=== PATIENT | male | born 1940 | race Caucasian/White ===

== ENCOUNTER → 2017-01-25 | Outpatient (CLI) | payer MEDICARE, OTHER ==
[~2017-01-25] MED LIST: /ESOM40CA; ASPI325T; AVAP75TA5; FISH OIL; HUMA75VL; LOPR50TA; PERICOLACE; PLAV75TA2; PRAV40TA; THERGRAN; XANA0.25; [UNRECOGNIZED DRUG - OTHER]
--- NOTE | 2017-01-25 15:47 | REP ---
CAROTID ULTRASOUND: Real-time ultrasound evaluation and duplex Doppler interrogation of the extracranial carotid vasculature is performed. Mild to moderate scattered plaquing and narrowing is seen in both common carotid arteries and carotid bulbs extending into the internal carotid arteries. There is mild elevation of the peak systolic velocity in both common carotid arteries as well as the internal carotid arteries with normal ICA/CCA ratios. The elevated velocities in the internal carotid arteries would suggest stenosis 60 to 79%, but the normal ICA/CCA ratio ratios suggest luminal narrowing is actually less than 50%. There is normal direction of flow in both vertebral arteries. Compared to the prior study of 01/04/2016, the peak systolic velocities in the internal carotid arteries have only mildly increased bilaterally. Right Left PSV ICA 156.4 cm/s 149.8 cm/s EDV ICA 20.5 cm/s 36.6 cm/s PSV CCA 131.9 cm/s 138.0 cm/s PSV ECA 243 cm/s 136.8 cm/s ICA/CCA ratio 1.19 1.08 IMPRESSION: Similar findings to prior examinations, the most recent of which is 01/04/2016. Mild elevation of peak systolic velocity in the common carotid arteries and internal carotid arteries again noted, with only mild increase in the peak systolic velocities in the bilateral internal carotid arteries compared to that prior exam. The elevated velocities in the internal carotid arteries would be suggestive of stenosis between 60 and 79%, but the normal ICA/CCA ratios favor luminal narrowing less than 50%. There does not appear to be significant change when compared to prior study in 2016. Further evaluation may be made with MRA if clinically indicated. Signed by Simba Muñoz MD 01/25/2017 04:22 P
== END ==
LOC: M RAD 14:34
PROVIDERS: ATTEND Surgery Vascular Surgery
DX: I65.23 Occlusion and stenosis of bilateral carotid arteries (principal)

== ENCOUNTER → 2017-12-05 | Outpatient (CLI) | payer MEDICARE, OTHER ==
[2017-12-05 14:14] LABS: ANION GAP 4 MEQ/L (8-16); BLOOD UREA NITROGEN 32 MG/DL (7-18); CALCIUM LEVEL 8.9 MG/DL (8.8-10.2); CARBON DIOXIDE LEVEL 29 MEQ/L (21-32); CHLORIDE LEVEL 107 MEQ/L (98-107); GLOMERULAR FILTRATION RATE > 60.0 (>42); GLUCOSE, FASTING 116 MG/DL (70-100); POTASSIUM SERUM 4.9 MEQ/L (3.5-5.1); SODIUM LEVEL 140 MEQ/L (136-145)
== END ==
LOC: M SMT 09:32
DX: I25.10 Atherosclerotic heart disease of native coronary artery without angina pectoris (principal); I10 Essential (primary) hypertension
CPT/HCPCS: 80048

== ENCOUNTER → 2018-08-28 | Outpatient (REF) | payer MEDICARE, OTHER | LOC: M LAB REF 17:25 | PROVIDERS: ATTEND Family Medicine | DX: D64.9 Anemia, unspecified (principal) ==

== ENCOUNTER → 2018-12-10 | Outpatient (REF) | payer MEDICARE, OTHER ==
[~2018-12-10] MED LIST changes: -/ESOM40CA; +NEXI1CAP3
== END ==
LOC: M LAB REF 12:18
PROVIDERS: ATTEND Family Medicine
DX: I25.10 Atherosclerotic heart disease of native coronary artery without angina pectoris (principal)

== ENCOUNTER → 2020-06-02 | Outpatient (CLI) | payer MEDICARE, OTHER ==
--- NOTE | 2020-06-07 10:57 | REP ---
CAROTID DOPPLER ULTRASOUND CLINICAL: History of carotid stenosis and bilateral endarterectomy. COMPARISON: 01/23/2018. TECHNIQUE: Real-time cline scale and color Doppler evaluation using linear high frequency transducer. FINDINGS: Mild mixed atheromatous plaquing noted throughout the bilateral common carotid arteries extending to the carotid bulbs and proximal internal carotid arteries. Color evaluation demonstrates normal laminar flow without turbulence or obvious stenosis/occlusion. Doppler interrogation demonstrates arterial wave patterns with mild spectral broadening. Normal flow direction noted in the bilateral vertebral arteries. PEAK FLOW VELOCITY ANALYSIS RIGHT LEFT ICA PSV 104.2 cm/s 100.7 cm/s ICA EDV 16.7 cm/s 13.8 cm/s ECA PSV 194.3 cm/s 154.1 cm/s CCA PSV 148.1 cm/s 150.1 cm/s ICA/CCA RATIO 0.70 0.67 IMPRESSION: Relatively mild atheromatous plaquing noted bilaterally. Based on set standards, narrowing is in the less than 50% range bilaterally. No evidence for significant stenosis or occlusion. MTDD
== END ==
LOC: M RAD 12:15
PROVIDERS: ATTEND Surgery Vascular Surgery
DX: I65.29 Occlusion and stenosis of unspecified carotid artery (principal)

== ENCOUNTER → 2021-05-18 | Outpatient (CLI) | payer MEDICARE, OTHER ==
--- NOTE | 2021-05-18 12:11 | REP ---
INDICATION: Assess stenosis COMPARISON: Multiple the latest 06/02/2020 TECHNIQUE: Carotid ultrasonography was performed bilaterally FINDINGS: Right: CCA systolic: 111.8 centimeters/second CCA diastolic: 11.3 centimeters/second ICA systolic: 94.1 centimeters/second ICA diastolic: 19.1 centimeters/second ICA CCA ratio: 0.84 Left: CCA systolic: 146.2 centimeters/second CCA diastolic: 13.9 centimeters/second ICA systolic: 116.0 centimeters/second ICA diastolic: 28.2 centimeters/second ICA CCA ratio: 0.79 Vertebral artery: Right: Antegrade flow left: Antegrade flow IMPRESSION: According to the SRU criteria there is less than 50% stenosis of the internal carotid artery bilaterally. This is secondary to both calcified and noncalcified atheromatous plaque formation. There has been no significant change compared to the prior exam. <Electronically signed by Randall Trinidad > 05/18/21 [id number]
== END ==
LOC: M RAD 11:22
PROVIDERS: ATTEND Surgery Vascular Surgery
DX: I65.23 Occlusion and stenosis of bilateral carotid arteries (principal)

== ENCOUNTER 2022-04-06 15:36 | Inpatient (IN) | payer MEDICARE, OTHER ==
[~2022-04-06] VITALS: Ht 167.6 cm; Wt 100.0 kg
[~2022-04-06 15:36] MED LIST changes: -ACETAMINOPHEN 1000MG 100ML IV BTL (OFIRMEV) (J0131 PER 10MG) As Ordered ONE; -ALPR0.25 PO; -AMLO1TAB24 PO; -ASPI-161 PO; -ATOR40TA75 PO; -FISH1000 PO; -GASTROGRAFIN SOLUTION 30ML (Q9963) As Ordered ONE; -INSUHUMDS SC; -INSULANT SC; -LIDOCAINE 2% 100MG/5ML SDV (FOR ANES.) As Ordered ONE; -LOSA100T8 PO; -METO25TA4 PO; -NEXI40CA PO; -ONDANSETRON 4MG 2ML VIAL As Ordered ONE; -PHENYLephrine 500MCG 5ML (100MCG/ML) SYRINGE As Ordered ONE; -PLAV1TAB2 PO; -ROCURONIUM BROMIDE 50 MG/5 ML VIAL As Ordered ONE; -SENN-23 PO; -SLOWTAB2 PO; -SPIR-10 PO; -SUGAMMADEX SODIUM 500 MG/5 ML VIAL (BRIDION) As Ordered ONE; -VASOPRESSIN INJ 20 UNITS/ML VIAL As Ordered ONE; -VITMTA PO; -ZETI10TA16 PO; -dexameTHASONE 4 MG/ML 1ML VIAL (J1100 PER 1MG) As Ordered ONE; -ePHEDrine SULFATE 25 MG/5 ML(5MG/ML) SYRINGE As Ordered ONE; -fentaNYL 100 MCG/2 ML INJECTION As Ordered ONE; -propofoL 200 MG/20 ML VIAL As Ordered ONE
[2022-04-06 16:39] LABS: BASO % 0.3 % (0.0-1.0); EOS # 0.1 10^3/uL (0.0-0.5); EOS % 0.8 % (0.0-3.0); HEMATOCRIT 40.3 % (42.0-52.0); HEMOGLOBIN 12.5 g/dl (13.5-17.5); LYMPH # 1.3 10^3/uL (1.5-5.0); LYMPH % 9.8 % (24.0-44.0); MEAN CORPUSCULAR HEMOGLOBIN 29.4 pg (27.0-33.0); MEAN CORPUSCULAR VOLUME 94.8 fl (80.0-96.0); MONO # 0.6 10^3/uL (0.0-0.8); MONO % 4.3 % (2.0-8.0); NEUTROPHILS # 11.5 10^3/uL (1.5-8.5); NEUTROPHILS % 84.4 % (36.0-66.0); PLATELET COUNT, AUTOMATED 151 10^3/uL (150-450); RED BLOOD COUNT 4.25 10^6/uL (4.30-6.10); WHITE BLOOD COUNT 13.6 10^3/uL (4.0-10.0)
[2022-04-06] MEDS ORDERED: ONDANSETRON 4MG 2ML VIAL IV ONE (16:50)
[2022-04-06] MEDS ORDERED: MORPHINE 2 MG/ML 1ML VIAL IV ONE (16:50)
[2022-04-06] MEDS ORDERED: NS 500 ML IV ONE (16:50)
[2022-04-06] MEDS ORDERED: PIPERACILLIN/TAZOBACTAM SOD 3.375 GM in D5W MINI-BAG PLUS 50 ML IV ONE (16:50)
[2022-04-06 17:21] LABS: INR 1.02; PROTHROMBIN TIME 13.8 SECONDS (12.7-14.5)
[2022-04-06 17:22] LABS: PARTIAL THROMBOPLASTIN TIME 33.5 SECONDS (25.9-37.0)
[2022-04-06 17:40] LABS: ALBUMIN 3.7 GM/DL (3.2-5.2); ALT/SGPT 22 U/L (12-78); BILIRUBIN,DIRECT 0.2 MG/DL (0.0-0.2); BILIRUBIN,TOTAL 0.6 MG/DL (0.2-1.0); BLOOD UREA NITROGEN 22 MG/DL (7-18); CALCIUM LEVEL 9.4 MG/DL (8.8-10.2); CARBON DIOXIDE LEVEL 27 MEQ/L (21-32); CHLORIDE LEVEL 108 MEQ/L (98-107); CREATININE FOR GFR 1.18 MG/DL (0.70-1.30); GLOMERULAR FILTRATION RATE > 60.0 (>35); GLUCOSE, FASTING 189 MG/DL (70-100); LIPASE 64 U/L (73-393); POTASSIUM SERUM 5.8 MEQ/L (3.5-5.1); SODIUM LEVEL 139 MEQ/L (136-145); TOTAL PROTEIN 7.5 GM/DL (6.4-8.2)
[2022-04-06] MEDS ORDERED: METOCLOPRAMIDE INJ 10MG/2ML VIAL (J2765 PER 1) IV ONE (18:00)
[2022-04-06] MEDS ORDERED: ALPRAZolam 0.25 MG TAB PO ONE (18:35)
[2022-04-06] MEDS ORDERED: ONDANSETRON 4MG 2ML VIAL IV PRN (20:40)
[2022-04-06] MEDS ORDERED: MORPHINE 2 MG/ML 1ML VIAL IV PRN (20:40)
[2022-04-06] MEDS ORDERED: KETOROLAC 30 MG/ML 1ML VIAL IV PRN (20:40)
[2022-04-06] MEDS: NS 1,000 ML IV SCH (21:00)
[2022-04-06] MEDS: INSULIN LISPRO (NovoLOG) PER UNIT SC SCH (21:00)
[2022-04-06] MEDS ORDERED: BUPIVACAINE HCL 0.25% 30ML VIAL As Ordered ONE (21:31)
[2022-04-06] MEDS ORDERED: ZOSYN 3.375GM VIAL As Ordered ONE (21:43)
[2022-04-06] MEDS ORDERED: NORCO, ANEXSIA 5/325MG TABLET (HYDROcodone/ACETAMINOPHEN) PO PRN (23:10)
[2022-04-06 23:45] VITALS: BP 103/41
[2022-04-07] VITALS (14 sets, daily range): BP systolic 76–106; BP diastolic 32–62
[2022-04-07] MEDS ORDERED: ATOR40TA75 PO (01:13)
[2022-04-07] MEDS ORDERED: ALPR0.25 PO (01:13)
[2022-04-07] MEDS ORDERED: FISH1000 PO (01:13)
[2022-04-07] MEDS ORDERED: ZETI10TA16 PO (01:13)
[2022-04-07] MEDS ORDERED: NEXI40CA PO (01:13)
[2022-04-07] MEDS ORDERED: ASPI-161 PO (01:13)
[2022-04-07] MEDS ORDERED: PLAV1TAB2 PO (01:13)
[2022-04-07] MEDS ORDERED: METO25TA4 PO (01:13)
[2022-04-07] MEDS ORDERED: INSUHUMDS SC (01:13)
[2022-04-07] MEDS ORDERED: SPIR-10 PO (01:13)
[2022-04-07] MEDS ORDERED: VITMTA PO (01:13)
[2022-04-07] MEDS ORDERED: SLOWTAB2 PO (01:13)
[2022-04-07] MEDS ORDERED: LOSA100T8 PO (01:13)
[2022-04-07] MEDS ORDERED: AMLO1TAB24 PO (01:13)
[2022-04-07] MEDS ORDERED: INSULANT SC (01:13)
[2022-04-07] MEDS ORDERED: SENN-23 PO (01:13)
[2022-04-07] MEDS ORDERED: HOME MED LIST COMPLETE! XX SCH (01:15)
[2022-04-07] MEDS: PIPERACILLIN/TAZOBACTAM SOD 3.375 GM in D5W MINI-BAG PLUS 50 ML IV SCH ×3 (01:30→10:10)
[2022-04-07] MEDS ORDERED: SPIRONOLACTONE 12.5MG PER 1/2 TABLET PO SCH (09:00)
[2022-04-07] MEDS ORDERED: LOSARTAN 50MG TABLET PO SCH (09:00)
[2022-04-07] MEDS ORDERED: hydroCHLOROthiazide 12.5 MG CAPSULE PO SCH (09:00)
[2022-04-07] MEDS: INSULIN LISPRO (NovoLOG) PER UNIT SC SCH ×4 (09:33→21:00)
[2022-04-07] MEDS: NS 1,000 ML IV SCH (09:34)
[2022-04-07] MEDS: PANTOPRAZOLE 40MG TAB (PROTONIX) PO SCH (10:09)
[2022-04-07] MEDS: CLOPIDOGREL 75 MG TAB PO SCH (10:09)
[2022-04-07] MEDS: ALPRAZolam 0.25 MG TAB PO SCH ×2 (10:16→20:38)
[2022-04-07] MEDS: METOPROLOL TART 12.5 MG PER 1/2 TAB PO SCH ×3 (10:59→20:39)
[2022-04-07] MEDS: amLODIPine 5 MG TAB PO SCH (10:59)
[2022-04-07] MEDS: ACETAMINOPHEN TAB 650MG DOSE (2X325MG) PO PRN ×3 (12:09→21:06)
[2022-04-07] MEDS: ATORVASTATIN 20 MG TAB PO SCH (20:38)
[2022-04-08 02:00] VITALS: BP_SYST 100; BP_SYST 80; BP_DIAS 44; BP_DIAS 52
[2022-04-08 06:00] VITALS: BP 114/60
[2022-04-08 07:48] LABS: HEMATOCRIT 34.7 % (42.0-52.0); HEMOGLOBIN 10.8 g/dl (13.5-17.5); MEAN CORPUSCULAR HEMOGLOBIN 30.4 pg (27.0-33.0); MEAN CORPUSCULAR HGB CONC 31.1 g/dl (32.0-36.5); MEAN CORPUSCULAR VOLUME 97.7 fl (80.0-96.0); RED BLOOD COUNT 3.55 10^6/uL (4.30-6.10); WHITE BLOOD COUNT 18.1 10^3/uL (4.0-10.0)
[2022-04-08 08:16] LABS: LYMPHOCYTES 7 % (16-44); MONOCYTES 1 % (0-5); NEUTROPHILS 80 % (28-66)
[2022-04-08 08:17] LABS: PLATELET CLUMPS SMALL AMT; PLATELET ESTIMATE INVALID (NORMAL)
[2022-04-08 08:18] LABS: CRENATED RBC 1+; OVALOCYTES 1+
[2022-04-08 08:19] LABS: POIKILOCYTOSIS 1+
[2022-04-08 08:20] LABS: POLYCHROMASIA 1+
[2022-04-08 08:29] LABS: CALCIUM LEVEL 7.8 MG/DL (8.8-10.2); CREATININE FOR GFR 2.82 MG/DL (0.70-1.30); GLOMERULAR FILTRATION RATE 23.1 (>35)
[2022-04-08 10:00] VITALS: BP 112/59
[2022-04-08] MEDS: CLOPIDOGREL 75 MG TAB PO SCH (10:12)
[2022-04-08] MEDS: INSULIN LISPRO (NovoLOG) PER UNIT SC SCH ×4 (10:12→21:00)
[2022-04-08] MEDS: PANTOPRAZOLE 40MG TAB (PROTONIX) PO SCH (10:12)
[2022-04-08] MEDS: METOPROLOL TART 12.5 MG PER 1/2 TAB PO SCH ×2 (10:14→19:42)
[2022-04-08] MEDS: ALPRAZolam 0.25 MG TAB PO SCH ×2 (10:15→20:31)
[2022-04-08] MEDS: PIPERACILLIN/TAZOBACTAM SOD 3.375 GM in D5W MINI-BAG PLUS 50 ML IV SCH ×2 (12:53→19:49)
[2022-04-08] MEDS: amLODIPine 5 MG TAB PO SCH (12:53)
[2022-04-08 12:58] LABS: CK-MB VALUE MASS 6.7 NG/ML (<3.6); MB/CK RELATIVE INDEX 7.79 (< OR =4)
[2022-04-08 14:00] VITALS: BP 142/70
[2022-04-08] MEDS: LR 1,000 ML IV SCH ×2 (14:31→22:09)
[2022-04-08] MEDS: ASPIRIN 81MG ENTERIC TABLET PO SCH (14:31)
[2022-04-08] MEDS: LEVEMIR (INSULIN DETEMIR) 1 UNITS/0.01ML SC SCH (14:31)
[2022-04-08 14:39] LABS: CK-MB VALUE MASS 6.1 NG/ML (<3.6); MB/CK RELATIVE INDEX 7.82 (< OR =4)
[2022-04-08] MEDS: ATORVASTATIN 20 MG TAB PO SCH (20:32)
[2022-04-08 22:00] VITALS: BP 141/72
[2022-04-09 02:00] VITALS: BP 140/74
[2022-04-09] MEDS: PIPERACILLIN/TAZOBACTAM SOD 3.375 GM in D5W MINI-BAG PLUS 50 ML IV SCH ×3 (03:14→18:15)
[2022-04-09] MEDS: ACETAMINOPHEN TAB 650MG DOSE (2X325MG) PO PRN ×2 (03:57→21:24)
[2022-04-09 06:00] VITALS: BP 142/73
[2022-04-09 07:14] LABS: BASO % 0.2 % (0.0-1.0); EOS # 0.3 10^3/uL (0.0-0.5); EOS % 2.5 % (0.0-3.0); HEMATOCRIT 32.6 % (42.0-52.0); HEMOGLOBIN 10.2 g/dl (13.5-17.5); LYMPH # 1.4 10^3/uL (1.5-5.0); LYMPH % 11.1 % (24.0-44.0); MEAN CORPUSCULAR HEMOGLOBIN 30.2 pg (27.0-33.0); MEAN CORPUSCULAR HGB CONC 31.3 g/dl (32.0-36.5); MEAN CORPUSCULAR VOLUME 96.4 fl (80.0-96.0); MONO # 0.5 10^3/uL (0.0-0.8); NEUTROPHILS # 10.2 10^3/uL (1.5-8.5); NEUTROPHILS % 80.9 % (36.0-66.0); PLATELET COUNT, AUTOMATED 102 10^3/uL (150-450); RED BLOOD COUNT 3.38 10^6/uL (4.30-6.10); WHITE BLOOD COUNT 12.7 10^3/uL (4.0-10.0)
[2022-04-09 07:44] LABS: C REACTIVE PROTEIN QUANTITATIV 11.7 MG/DL (0.00-0.30); CALCIUM LEVEL 8.6 MG/DL (8.8-10.2); CREATININE FOR GFR 1.63 MG/DL (0.70-1.30); GLOMERULAR FILTRATION RATE 43.4 (>35)
[2022-04-09] MEDS: LR 1,000 ML IV SCH ×3 (08:00→18:40)
[2022-04-09] MEDS: INSULIN LISPRO (NovoLOG) PER UNIT SC SCH ×4 (08:47→21:00)
[2022-04-09] MEDS: ASPIRIN 81MG ENTERIC TABLET PO SCH (08:48)
[2022-04-09] MEDS: ALPRAZolam 0.25 MG TAB PO SCH ×2 (08:48→21:25)
[2022-04-09] MEDS: PANTOPRAZOLE 40MG TAB (PROTONIX) PO SCH (08:48)
[2022-04-09] MEDS: CLOPIDOGREL 75 MG TAB PO SCH (08:48)
[2022-04-09] MEDS: amLODIPine 5 MG TAB PO SCH (08:48)
[2022-04-09] MEDS: LEVEMIR (INSULIN DETEMIR) 1 UNITS/0.01ML SC SCH (08:48)
[2022-04-09] MEDS: METOPROLOL TART 12.5 MG PER 1/2 TAB PO SCH (08:49)
[2022-04-09 11:30] VITALS: BP 150/80
[2022-04-09] MEDS: METOPROLOL TART 25 MG TABLET PO SCH ×3 (12:02→21:25)
[2022-04-09 12:03] VITALS: BP 152/78
[2022-04-09 14:00] VITALS: BP 154/79
[2022-04-09] MEDS: ATORVASTATIN 20 MG TAB PO SCH (21:25)
[2022-04-09 22:00] VITALS: BP 158/77
[2022-04-10] MEDS: LR 1,000 ML IV SCH ×2 (03:36→14:21)
[2022-04-10] MEDS: PIPERACILLIN/TAZOBACTAM SOD 3.375 GM in D5W MINI-BAG PLUS 50 ML IV SCH ×3 (03:36→18:18)
[2022-04-10 05:55] VITALS: BP 144/75
[2022-04-10 06:18] LABS: BASO % 0.3 % (0.0-1.0); EOS # 0.4 10^3/uL (0.0-0.5); EOS % 4.8 % (0.0-3.0); HEMOGLOBIN 10.2 g/dl (13.5-17.5); LYMPH # 1.6 10^3/uL (1.5-5.0); LYMPH % 21.7 % (24.0-44.0); MEAN CORPUSCULAR HEMOGLOBIN 28.8 pg (27.0-33.0); MONO # 0.4 10^3/uL (0.0-0.8); MONO % 5.5 % (2.0-8.0); NEUTROPHILS # 4.9 10^3/uL (1.5-8.5); NEUTROPHILS % 67.3 % (36.0-66.0); PLATELET COUNT, AUTOMATED 113 10^3/uL (150-450); RED BLOOD COUNT 3.54 10^6/uL (4.30-6.10); WHITE BLOOD COUNT 7.3 10^3/uL (4.0-10.0)
[2022-04-10 07:03] LABS: BLOOD UREA NITROGEN 23 MG/DL (7-18); C REACTIVE PROTEIN QUANTITATIV 5.44 MG/DL (0.00-0.30); CALCIUM LEVEL 8.9 MG/DL (8.8-10.2); CARBON DIOXIDE LEVEL 25 MEQ/L (21-32); CHLORIDE LEVEL 112 MEQ/L (98-107); CREATININE FOR GFR 1.16 MG/DL (0.70-1.30); GLOMERULAR FILTRATION RATE > 60.0 (>35); GLUCOSE, FASTING 103 MG/DL (70-100); POTASSIUM SERUM 4.5 MEQ/L (3.5-5.1); SODIUM LEVEL 142 MEQ/L (136-145)
[2022-04-10] MEDS: INSULIN LISPRO (NovoLOG) PER UNIT SC SCH ×4 (07:30→20:15)
[2022-04-10] MEDS: ASPIRIN 81MG ENTERIC TABLET PO SCH (08:10)
[2022-04-10] MEDS: ALPRAZolam 0.25 MG TAB PO SCH ×2 (08:10→20:15)
[2022-04-10] MEDS: CLOPIDOGREL 75 MG TAB PO SCH (08:11)
[2022-04-10] MEDS: PANTOPRAZOLE 40MG TAB (PROTONIX) PO SCH (08:11)
[2022-04-10] MEDS: METOPROLOL TART 25 MG TABLET PO SCH ×2 (08:11→12:18)
[2022-04-10] MEDS: LEVEMIR (INSULIN DETEMIR) 1 UNITS/0.01ML SC SCH (08:11)
[2022-04-10] MEDS ORDERED: LR 500 ML IV ONE (10:05)
[2022-04-10 11:33] VITALS: BP 175/83
[2022-04-10 15:12] VITALS: BP 149/73
[2022-04-10 17:16] VITALS: BP 172/60
[2022-04-10] MEDS ORDERED: METOPROLOL SUCC (TopROL XL) 50MG **XL** TAB PO ONE (18:00)
[2022-04-10] MEDS ORDERED: amLODIPine 5 MG TAB PO ONE (18:20)
[2022-04-10 20:11] VITALS: BP 148/78
[2022-04-10] MEDS: ATORVASTATIN 20 MG TAB PO SCH (20:14)
[2022-04-10] MEDS ORDERED: ENOXAPARIN 100MG/1ML SYRINGE (J1650 PER 10MG) SC ONE (21:00)
[2022-04-10] MEDS ORDERED: HEPARIN SOD (PORCINE) 5000UNITS/ML 1ML VIAL/SYRINGE SQ SCH (22:00)
[2022-04-11] VITALS: BP 162/68
[2022-04-11 03:25] VITALS: BP 164/78
[2022-04-11] MEDS: PIPERACILLIN/TAZOBACTAM SOD 3.375 GM in D5W MINI-BAG PLUS 50 ML IV SCH ×3 (03:30→18:19)
[2022-04-11 06:09] LABS: BASO % 0.5 % (0.0-1.0); EOS # 0.5 10^3/uL (0.0-0.5); EOS % 5.2 % (0.0-3.0); HEMATOCRIT 36.6 % (42.0-52.0); HEMOGLOBIN 11.7 g/dl (13.5-17.5); LYMPH # 2.6 10^3/uL (1.5-5.0); LYMPH % 29.3 % (24.0-44.0); MEAN CORPUSCULAR HEMOGLOBIN 29.8 pg (27.0-33.0); MEAN CORPUSCULAR VOLUME 93.4 fl (80.0-96.0); MONO # 0.5 10^3/uL (0.0-0.8); MONO % 5.8 % (2.0-8.0); NEUTROPHILS # 5.2 10^3/uL (1.5-8.5); NEUTROPHILS % 58.4 % (36.0-66.0); PLATELET COUNT, AUTOMATED 137 10^3/uL (150-450); RED BLOOD COUNT 3.92 10^6/uL (4.30-6.10); WHITE BLOOD COUNT 8.8 10^3/uL (4.0-10.0)
[2022-04-11 06:41] LABS: BLOOD UREA NITROGEN 18 MG/DL (7-18); CALCIUM LEVEL 9.4 MG/DL (8.8-10.2); CARBON DIOXIDE LEVEL 27 MEQ/L (21-32); CHLORIDE LEVEL 109 MEQ/L (98-107); CREATININE FOR GFR 1.18 MG/DL (0.70-1.30); GLOMERULAR FILTRATION RATE > 60.0 (>35); GLUCOSE, FASTING 158 MG/DL (70-100); PHOSPHORUS LEVEL 4.1 MG/DL (2.5-4.9); POTASSIUM SERUM 4.3 MEQ/L (3.5-5.1); SODIUM LEVEL 141 MEQ/L (136-145)
[2022-04-11 08:00] VITALS: BP 170/100
[2022-04-11] MEDS: MAG SULF 1GM/100ML (MAG RUN) 1 GM in IV 1 EA IV SCH ×2 (08:26→09:38)
[2022-04-11] MEDS: LEVEMIR (INSULIN DETEMIR) 1 UNITS/0.01ML SC SCH (08:26)
[2022-04-11] MEDS: INSULIN LISPRO (NovoLOG) PER UNIT SC SCH ×4 (08:26→20:28)
[2022-04-11] MEDS: PANTOPRAZOLE 40MG TAB (PROTONIX) PO SCH (08:27)
[2022-04-11] MEDS: CLOPIDOGREL 75 MG TAB PO SCH (08:27)
[2022-04-11] MEDS: METOPROLOL TART 25 MG TABLET PO SCH ×3 (08:27→18:21)
[2022-04-11] MEDS: ASPIRIN 81MG ENTERIC TABLET PO SCH (08:27)
[2022-04-11] MEDS: ALPRAZolam 0.25 MG TAB PO SCH ×2 (08:27→20:28)
[2022-04-11] MEDS: amLODIPine 5 MG TAB PO SCH (08:28)
[2022-04-11] MEDS ORDERED: METOPROLOL SUCC (TopROL XL) 50MG **XL** TAB PO SCH (09:00)
[2022-04-11] MEDS ORDERED: LOSARTAN 50MG TABLET PO SCH (09:00)
[2022-04-11] MEDS ORDERED: METOPROLOL SUCC *XL* 25MG TAB (TopROL *XL*) PO SCH (09:00)
[2022-04-11 11:34] VITALS: BP 160/72
[2022-04-11] MEDS: hydroCHLOROthiazide 12.5 MG CAPSULE PO SCH (14:21)
[2022-04-11 16:00] VITALS: BP 180/80
[2022-04-11 20:00] VITALS: BP 162/70
[2022-04-11] MEDS: APIXABAN 5 MG TAB (ELIQUIS) PO SCH (20:28)
[2022-04-11] MEDS: ATORVASTATIN 20 MG TAB PO SCH (20:28)
[2022-04-12] VITALS: BP 166/82
[2022-04-12] MEDS: METOPROLOL TART 25 MG TABLET PO SCH ×2 (00:48→05:06)
[2022-04-12] MEDS: PIPERACILLIN/TAZOBACTAM SOD 3.375 GM in D5W MINI-BAG PLUS 50 ML IV SCH ×2 (03:45→11:35)
[2022-04-12 04:00] VITALS: BP 162/80
[2022-04-12 05:09] LABS: HEMATOCRIT 33.8 % (42.0-52.0); HEMOGLOBIN 10.6 g/dl (13.5-17.5); MEAN CORPUSCULAR HEMOGLOBIN 29.8 pg (27.0-33.0); MEAN CORPUSCULAR HGB CONC 31.4 g/dl (32.0-36.5); MEAN CORPUSCULAR VOLUME 94.9 fl (80.0-96.0); PLATELET COUNT, AUTOMATED 150 10^3/uL (150-450); RED BLOOD COUNT 3.56 10^6/uL (4.30-6.10); WHITE BLOOD COUNT 9.6 10^3/uL (4.0-10.0)
[2022-04-12 05:51] LABS: BLOOD UREA NITROGEN 20 MG/DL (7-18); CARBON DIOXIDE LEVEL 31 MEQ/L (21-32); CHLORIDE LEVEL 107 MEQ/L (98-107); CREATININE FOR GFR 1.04 MG/DL (0.70-1.30); GLOMERULAR FILTRATION RATE > 60.0 (>35); GLUCOSE, FASTING 153 MG/DL (70-100); MAGNESIUM LEVEL 1.4 MG/DL (1.8-2.4); PHOSPHORUS LEVEL 4.2 MG/DL (2.5-4.9); POTASSIUM SERUM 4.2 MEQ/L (3.5-5.1); SODIUM LEVEL 143 MEQ/L (136-145)
[2022-04-12 08:00] VITALS: BP 160/72
[2022-04-12] MEDS ORDERED: ELIQ5TAB PO (08:23)
[2022-04-12] MEDS ORDERED: METO25TA4 PO (08:23)
[2022-04-12] MEDS ORDERED: LOSARTAN 50MG TABLET PO SCH (09:00)
[2022-04-12] MEDS: MAG SULF 1GM/100ML (MAG RUN) 1 GM in IV 1 EA IV SCH ×2 (09:02→10:18)
[2022-04-12] MEDS: PANTOPRAZOLE 40MG TAB (PROTONIX) PO SCH (09:03)
[2022-04-12] MEDS: INSULIN LISPRO (NovoLOG) PER UNIT SC SCH ×2 (09:03→12:26)
[2022-04-12] MEDS: ASPIRIN 81MG ENTERIC TABLET PO SCH (09:03)
[2022-04-12] MEDS: APIXABAN 5 MG TAB (ELIQUIS) PO SCH (09:03)
[2022-04-12] MEDS: LEVEMIR (INSULIN DETEMIR) 1 UNITS/0.01ML SC SCH (09:03)
[2022-04-12] MEDS: ALPRAZolam 0.25 MG TAB PO SCH (09:04)
[2022-04-12] MEDS: hydroCHLOROthiazide 12.5 MG CAPSULE PO SCH (09:04)
[2022-04-12 09:09] VITALS: BP 156/60
[2022-04-12] MEDS: amLODIPine 5 MG TAB PO SCH (09:09)
[2022-04-12 12:00] VITALS: BP 150/69
[2022-04-12] MEDS ORDERED: METOPROLOL TART 25 MG TABLET PO SCH (21:00)
== END 2022-04-12 15:21 | disposition home or self-care (01) | DRG 341 ==
LOC: M ED 15:36 → M SDC 20:59 → ENRESERV 22:58 → M MS5PR 23:45 → M SDC 04-09 11:42 → M MS5PR 04-09 11:43 → M PCU 04-10 17:05
PROVIDERS: ADMIT Surgery; ATTEND Surgery
PROC: 0DTJ4ZZ Resection of Appendix, Percutaneous Endoscopic Approach (ICD-10-PCS; principal; 2022-04-06 20:35)
PROC: B246ZZZ Ultrasonography of Right and Left Heart (ICD-10-PCS; 2022-04-08)
DX: K35.891 Other acute appendicitis without perforation, with gangrene (principal); U07.1 COVID-19; N17.9 Acute kidney failure, unspecified; T81.44XA Sepsis following a procedure, initial encounter; I96 Gangrene, not elsewhere classified; E11.9 Type 2 diabetes mellitus without complications; I25.10 Atherosclerotic heart disease of native coronary artery without angina pectoris; Z95.5 Presence of coronary angioplasty implant and graft; I50.9 Heart failure, unspecified; Z95.2 Presence of prosthetic heart valve; I11.0 Hypertensive heart disease with heart failure; R00.0 Tachycardia, unspecified; Z79.82 Long term (current) use of aspirin; Z79.4 Long term (current) use of insulin; Z79.899 Other long term (current) drug therapy; Z88.8 Allergy status to other drugs, medicaments and biological substances; I27.20 Pulmonary hypertension, unspecified; I48.91 Unspecified atrial fibrillation; D64.9 Anemia, unspecified

== ENCOUNTER → 2022-04-06 | Outpatient (CLI) | payer MEDICARE, OTHER ==
[~2022-04-06] MED LIST changes: +ACETAMINOPHEN 1000MG 100ML IV BTL (OFIRMEV) (J0131 PER 10MG) As Ordered ONE; +ALPR0.25 PO; +AMLO1TAB24 PO; +ASPI-161 PO; +ATOR40TA75 PO; +FISH1000 PO; +GASTROGRAFIN SOLUTION 30ML (Q9963) As Ordered ONE; +INSUHUMDS SC; +INSULANT SC; +LIDOCAINE 2% 100MG/5ML SDV (FOR ANES.) As Ordered ONE; +LOSA100T8 PO; +METO25TA4 PO; +NEXI40CA PO; +ONDANSETRON 4MG 2ML VIAL As Ordered ONE; +PHENYLephrine 500MCG 5ML (100MCG/ML) SYRINGE As Ordered ONE; +PLAV1TAB2 PO; +ROCURONIUM BROMIDE 50 MG/5 ML VIAL As Ordered ONE; +SENN-23 PO; +SLOWTAB2 PO; +SPIR-10 PO; +SUGAMMADEX SODIUM 500 MG/5 ML VIAL (BRIDION) As Ordered ONE; +VASOPRESSIN INJ 20 UNITS/ML VIAL As Ordered ONE; +VITMTA PO; +ZETI10TA16 PO; +dexameTHASONE 4 MG/ML 1ML VIAL (J1100 PER 1MG) As Ordered ONE; +ePHEDrine SULFATE 25 MG/5 ML(5MG/ML) SYRINGE As Ordered ONE; +fentaNYL 100 MCG/2 ML INJECTION As Ordered ONE; +propofoL 200 MG/20 ML VIAL As Ordered ONE
[2022-04-06 14:17] LABS: BLOOD UREA NITROGEN 23 MG/DL (7-18); CALCIUM LEVEL 9.3 MG/DL (8.8-10.2); CARBON DIOXIDE LEVEL 27 MEQ/L (21-32); CHLORIDE LEVEL 110 MEQ/L (98-107); CREATININE FOR GFR 1.16 MG/DL (0.70-1.30); GLOMERULAR FILTRATION RATE > 60.0 (>35); GLUCOSE, FASTING 101 MG/DL (70-100); POTASSIUM SERUM 5.6 MEQ/L (3.5-5.1); SODIUM LEVEL 140 MEQ/L (136-145)
== END ==
LOC: M RAD 12:29
PROVIDERS: ATTEND Physician Assistant Medical
DX: K35.80 Unspecified acute appendicitis (principal); R10.31 Right lower quadrant pain; M43.16 Spondylolisthesis, lumbar region; N28.1 Cyst of kidney, acquired
CPT/HCPCS: 36415; 74176; 80048; J0131; J2370; J2405; J3010; Q9963

== ENCOUNTER → 2022-04-25 | Outpatient (REF) | payer MEDICARE, OTHER ==
[~2022-04-25] MED LIST changes: +ALPR0.25 PO; +AMLO1TAB24 PO; +ASPI-161 PO; +ATOR40TA75 PO; +ELIQ5TAB PO; +FISH1000 PO; +INSUHUMDS SC; +INSULANT SC; +LOSA100T8 PO; +METO25TA4 PO; +NEXI40CA PO; +PLAV1TAB2 PO; +SENN-23 PO; +SLOWTAB2 PO; +SPIR-10 PO; +VITMTA PO; +ZETI10TA16 PO
== END ==
LOC: M LAB REF 16:18
PROVIDERS: ATTEND Family Medicine
DX: A41.89 Other specified sepsis (principal)

== ENCOUNTER → 2022-05-30 | Outpatient (CLI) | payer MEDICARE, OTHER | LOC: M RAD 12:45 | PROVIDERS: ATTEND Surgery Vascular Surgery | DX: I65.23 Occlusion and stenosis of bilateral carotid arteries (principal) ==

== ENCOUNTER → 2022-09-06 | Outpatient (CLI) | payer MEDICARE, OTHER ==
[~2022-09-06] MED LIST changes: +CLOP75TA99 PO; -PLAV1TAB2 PO
== END ==
LOC: M LABSMTC 10:28
PROVIDERS: ATTEND Anesthesiology
DX: Z01.812 Encounter for preprocedural laboratory examination (principal); Z20.822 Contact with and (suspected) exposure to COVID-19

== ENCOUNTER 2022-09-11 06:22 | Day surgery (SDC) | payer MEDICARE, OTHER ==
[~2022-09-11] VITALS: Ht 167.6 cm; Wt 102.1 kg
[~2022-09-11 06:22] MED LIST changes: +[UNRECOGNIZED DRUG - CODE] PO
[2022-09-11] MEDS ORDERED: LIDOCAINE 1% SDV 5ML VIAL As Ordered ONE (06:31)
[2022-09-11] MEDS ORDERED: TETRACAINE 0.5% OPHTH SOLN 4ML OD SCH (06:55)
[2022-09-11] MEDS ORDERED: PHENYLEPHRINE 2.5% OPHTH SOL 2ML OD SCH (06:55)
[2022-09-11] MEDS ORDERED: CYCLOPENTOLATE 1% OPHTH SOLN 2ML BTL OD SCH (06:55)
[2022-09-11] MEDS ORDERED: LR 1,000 ML IV SCH (07:00)
[2022-09-11] MEDS ORDERED: MIDAZOLAM INJ 2MG/2ML VIAL As Ordered ONE (07:52)
[2022-09-11] MEDS ORDERED: FLURBIPROFEN 0.03% OPHTH SOLN 2.5 ML OD SCH (08:00)
[2022-09-11] MEDS ORDERED: ESMOLOL INJ 100MG/10ML VIAL As Ordered ONE (08:08)
[2022-09-11 08:50] VITALS: BP 195/84
[2022-09-12] MEDS ORDERED: UNRESOLVED CLARIFICATION ENTRY XX SCH (00:01)
== END 2022-09-11 08:50 | disposition home or self-care (01) ==
LOC: M SDC 06:22
PROVIDERS: ATTEND Ophthalmology
DX: H25.811 Combined forms of age-related cataract, right eye (principal); I48.91 Unspecified atrial fibrillation; Z95.4 Presence of other heart-valve replacement; I10 Essential (primary) hypertension; Z95.5 Presence of coronary angioplasty implant and graft; E11.9 Type 2 diabetes mellitus without complications; Z87.891 Personal history of nicotine dependence; Z88.8 Allergy status to other drugs, medicaments and biological substances; Z79.4 Long term (current) use of insulin; Z79.01 Long term (current) use of anticoagulants; Z79.899 Other long term (current) drug therapy
CPT/HCPCS: 66984; J2250; V2632

== ENCOUNTER → 2023-02-13 | Outpatient (REF) | payer MEDICARE, OTHER ==
[2023-02-13 18:09] LABS: IRON (FE) 115 UG/DL (65-175); PERCENT SATURATION 30.4 % (19.7-50.0); TOTAL IRON BINDING CAPACITY 378 UG/DL (250-425)
[2023-02-13 18:11] LABS: VITAMIN B12 LEVEL 380 PG/ML (211-911)
[2023-02-13 18:12] LABS: FOLATE > 24.0 NG/ML (>5.4)
== END ==
LOC: M LAB REF 16:42
PROVIDERS: ATTEND Family Medicine
DX: D64.9 Anemia, unspecified (principal)

== ENCOUNTER 2023-05-05 17:59 | Inpatient (IN) | payer MEDICARE, OTHER ==
[~2023-05-05] VITALS: Ht 167.6 cm; Wt 100.4 kg
[~2023-05-05 17:59] MED LIST changes: +EZET10TA58 PO; -ZETI10TA16 PO
[2023-05-05 18:38] LABS: BASO % 0.3 % (0.0-1.0); EOS # 0.1 10^3/uL (0.0-0.5); EOS % 0.6 % (0.0-3.0); HEMATOCRIT 41.4 % (42.0-52.0); HEMOGLOBIN 13.2 g/dl (13.5-17.5); LYMPH # 1.5 10^3/uL (1.5-5.0); LYMPH % 9.6 % (24.0-44.0); MEAN CORPUSCULAR HEMOGLOBIN 29.2 pg (27.0-33.0); MEAN CORPUSCULAR HGB CONC 31.9 g/dl (32.0-36.5); MEAN CORPUSCULAR VOLUME 91.6 fl (80.0-96.0); MONO # 0.8 10^3/uL (0.0-0.8); MONO % 5.1 % (2.0-8.0); NEUTROPHILS # 12.7 10^3/uL (1.5-8.5); NEUTROPHILS % 83.9 % (36.0-66.0); PLATELET COUNT, AUTOMATED 148 10^3/uL (150-450); RED BLOOD COUNT 4.52 10^6/uL (4.30-6.10); WHITE BLOOD COUNT 15.1 10^3/uL (4.0-10.0)
[2023-05-05] MEDS ORDERED: ONDANSETRON 4MG 2ML VIAL IV ONE (18:50)
[2023-05-05] MEDS: MORPHINE 2 MG/ML 1ML VIAL IV PRN ×2 (19:13→21:43)
[2023-05-05 20:04] LABS: INR 1.3; PROTHROMBIN TIME 15.9 SECONDS (12.5-14.5)
[2023-05-05 20:05] LABS: PARTIAL THROMBOPLASTIN TIME 33.9 SECONDS (24.8-34.2)
[2023-05-05] MEDS ORDERED: ISOVUE-370 76% 100ML VIAL As Ordered ONE (20:29)
[2023-05-05] MEDS ORDERED: methylPREDNISolone 125MG 2ML VIAL IV ONE (20:35)
[2023-05-05] MEDS ORDERED: diphenhydrAMINE 50MG/ML VIAL IV ONE (20:35)
[2023-05-05 20:47] LABS: CK-MB VALUE MASS 1.1 NG/ML (<3.6)
[2023-05-05 20:50] LABS: THYROID STIMULATING HORMONE 2.577 uIU/ML (0.55-4.78)
[2023-05-05 20:52] LABS: FREE T4 1.12 NG/DL (0.89-1.76)
[2023-05-05 20:54] LABS: ALBUMIN 3.9 G/DL (3.2-5.2); BILIRUBIN,DIRECT 0.3 MG/DL (<0.4); BILIRUBIN,TOTAL 0.7 MG/DL (0.3-1.2); CALCIUM LEVEL 9.4 MG/DL (8.3-10.6); CREATININE FOR GFR 1.29 MG/DL (0.70-1.30); GLOMERULAR FILTRATION RATE 56.8 (>35); MB/CK RELATIVE INDEX 2.15 (< OR =4); POTASSIUM SERUM 4.7 MMOL/L (3.5-5.1); TOTAL PROTEIN 7.2 G/DL (5.7-8.2)
[2023-05-05 22:05] LABS: MB/CK RELATIVE INDEX 1.96 (< OR =4)
[2023-05-05] MEDS ORDERED: ACETAMINOPHEN TAB 650MG DOSE (2X325MG) PO ONE (22:35)
[2023-05-05] MEDS ORDERED: NS 1,000 ML IV ONE (22:35)
[2023-05-05] MEDS ORDERED: PIPERACILLIN/TAZOBACTAM SOD 3.375 GM in D5W MINI-BAG PLUS 50 ML IV ONE (23:25)
[2023-05-05] MEDS: METOPROLOL 5 MG/5 ML VIAL IV SCH ×2 (23:35→23:40)
[2023-05-06] MEDS ORDERED: METO25TA4 PO (00:50)
[2023-05-06] MEDS ORDERED: ELIQ5TAB PO (00:50)
[2023-05-06] MEDS ORDERED: HOME MED LIST COMPLETE! XX SCH (00:55)
[2023-05-06] MEDS: METOPROLOL 5 MG/5 ML VIAL IV SCH (01:06)
[2023-05-06] MEDS ORDERED: SENOKOT S TAB PO PRN (01:50)
[2023-05-06] MEDS ORDERED: MOM 30ML SUSPENSION UDC PO PRN (01:50)
[2023-05-06 03:37] VITALS: BP 116/54; TEMP 98.2; O2SAT 94
[2023-05-06] MEDS: ATORVASTATIN 20 MG TAB PO SCH ×2 (03:43→20:22)
[2023-05-06] MEDS ORDERED: NS 1,000 ML IV SCH (04:40)
[2023-05-06 05:13] LABS: HEMOGLOBIN 12.6 g/dl (13.5-17.5); MEAN CORPUSCULAR HGB CONC 31.5 g/dl (32.0-36.5); MEAN CORPUSCULAR VOLUME 92.2 fl (80.0-96.0); PLATELET COUNT, AUTOMATED 121 10^3/uL (150-450); RED BLOOD COUNT 4.34 10^6/uL (4.30-6.10); WHITE BLOOD COUNT 24.1 10^3/uL (4.0-10.0)
[2023-05-06 05:48] LABS: ALBUMIN 3.1 G/DL (3.2-5.2); BILIRUBIN,TOTAL 0.7 MG/DL (0.3-1.2); CALCIUM LEVEL 8.7 MG/DL (8.3-10.6); CREATININE FOR GFR 1.43 MG/DL (0.70-1.30); GLOMERULAR FILTRATION RATE 50.4 (>35); MAGNESIUM LEVEL 1.2 MG/DL (1.8-2.4); POTASSIUM SERUM 5.7 MMOL/L (3.5-5.1); TOTAL PROTEIN 6.2 G/DL (5.7-8.2)
[2023-05-06] MEDS: PIPERACILLIN/TAZOBACTAM SOD 3.375 GM in D5W MINI-BAG PLUS 50 ML IV SCH ×3 (05:49→18:31)
[2023-05-06] MEDS: MAG SULF 1GM/100ML (MAG RUN) 1 GM in IV 1 EA IV SCH ×2 (07:50→09:01)
[2023-05-06 08:00] VITALS: BP 134/61; TEMP 98.2; O2SAT 95
[2023-05-06] MEDS: LEVEMIR (INSULIN DETEMIR) 1 UNITS/0.01ML SC SCH (09:00)
[2023-05-06] MEDS ORDERED: amLODIPine 5 MG TAB PO SCH (09:00)
[2023-05-06] MEDS: PANTOPRAZOLE 40MG TAB (PROTONIX) PO SCH (09:01)
[2023-05-06] MEDS: MULTIVITAMINS/MINERALS THERAP 1 TAB PO SCH (09:01)
[2023-05-06] MEDS: ALPRAZolam 0.25 MG TAB PO SCH ×2 (09:01→20:22)
[2023-05-06] MEDS: ASPIRIN 81MG ENTERIC TABLET PO SCH (09:01)
[2023-05-06] MEDS: METOPROLOL TART 25 MG TABLET PO SCH ×2 (09:02→20:48)
[2023-05-06 11:00] LABS: CALCIUM LEVEL 8.5 MG/DL (8.3-10.6); CREATININE FOR GFR 1.48 MG/DL (0.70-1.30); GLOMERULAR FILTRATION RATE 48.4 (>35); POTASSIUM SERUM 5.6 MMOL/L (3.5-5.1)
[2023-05-06] MEDS ORDERED: GLUCOSE 4GM CHEW TABLET PO PRN (11:40)
[2023-05-06] MEDS ORDERED: GLUCAGON INJ 1MG VIAL SC PRN (11:40)
[2023-05-06] MEDS ORDERED: DEXTROSE 50% 50ML SYRINGE IV PRN (11:40)
[2023-05-06 12:00] VITALS: BP 133/60; TEMP 98; O2SAT 96
[2023-05-06] MEDS: INSULIN LISPRO (NovoLOG) PER UNIT SC SCH ×3 (12:00→23:40)
[2023-05-06] MEDS ORDERED: DEXTROSE 50% 50ML SYRINGE IV STA (12:11)
[2023-05-06] MEDS ORDERED: ALBUTEROL SULFATE 2.5MG/0.5ML INH NEB SOLN NEB STA (12:11)
[2023-05-06] MEDS ORDERED: HumuLIN R (REGULAR) INSULIN (NovoLIN R) **100U/ML** PER UNIT IV STA ×3 (12:11→16:21)
[2023-05-06] MEDS: NS 1,000 ML IV SCH ×2 (12:31→22:24)
[2023-05-06] MEDS ORDERED: INSULIN LISPRO (NovoLOG) PER UNIT SC ONE (14:05)
[2023-05-06] MEDS ORDERED: HEPARIN SOD (PORCINE) 5000UNITS/ML 1ML VIAL/SYRINGE IV PRN (15:00)
[2023-05-06 15:56] LABS: HEMATOCRIT 41.2 % (42.0-52.0); HEMOGLOBIN 12.4 g/dl (13.5-17.5); MEAN CORPUSCULAR HEMOGLOBIN 28.8 pg (27.0-33.0); MEAN CORPUSCULAR HGB CONC 30.1 g/dl (32.0-36.5); MEAN CORPUSCULAR VOLUME 95.6 fl (80.0-96.0); PLATELET COUNT, AUTOMATED 109 10^3/uL (150-450); RED BLOOD COUNT 4.31 10^6/uL (4.30-6.10); WHITE BLOOD COUNT 23.2 10^3/uL (4.0-10.0)
[2023-05-06 16:00] VITALS: BP 128/55; TEMP 97.9; O2SAT 93
[2023-05-06 16:08] LABS: ALBUMIN 2.8 G/DL (3.2-5.2); BILIRUBIN,TOTAL 0.7 MG/DL (0.3-1.2); CALCIUM LEVEL 8.6 MG/DL (8.3-10.6); CREATININE FOR GFR 1.51 MG/DL (0.70-1.30); GLOMERULAR FILTRATION RATE 47.3 (>35); POTASSIUM SERUM 4.9 MMOL/L (3.5-5.1)
[2023-05-06] MEDS ORDERED: LR 1,000 ML IV ONE (16:25)
[2023-05-06 16:57] LABS: LYMPHOCYTES 2 % (16-44); MONOCYTES 2 % (0-5); MYELOCYTES 2 % (0-0); NEUTROPHILS 87 % (28-66)
[2023-05-06 16:58] LABS: PLATELET ESTIMATE DECREASED (NORMAL)
[2023-05-06] MEDS ORDERED: NS 1,000 ML IV ONE (17:00)
[2023-05-06] MEDS: HEPARIN DRIP 25,000 UNITS in IV 1 EA IV SCH (17:24)
[2023-05-06 20:00] VITALS: BP 105/56; TEMP 98.4; O2SAT 93
[2023-05-06] MEDS: EZETIMIBE 10MG TABLET (ZETIA) PO SCH (20:22)
[2023-05-06] MEDS: ACETAMINOPHEN TAB 650MG DOSE (2X325MG) PO PRN (20:31)
[2023-05-06 23:00] VITALS: BP 98/49
[2023-05-06 23:49] LABS: INR 1.63; PROTHROMBIN TIME 18.9 SECONDS (12.5-14.5)
[2023-05-07] VITALS: BP 121/54; TEMP 97.9; O2SAT 94
[2023-05-07] MEDS: PIPERACILLIN/TAZOBACTAM SOD 3.375 GM in D5W MINI-BAG PLUS 50 ML IV SCH ×4 (00:05→17:10)
[2023-05-07 00:11] LABS: PARTIAL THROMBOPLASTIN TIME 207.2 SECONDS (24.8-34.2)
[2023-05-07] MEDS: ACETAMINOPHEN TAB 650MG DOSE (2X325MG) PO PRN ×2 (03:04→12:51)
[2023-05-07 04:00] VITALS: BP 154/55; TEMP 98; O2SAT 93
[2023-05-07 04:33] LABS: BASO % 0.1 % (0.0-1.0); HEMATOCRIT 36.3 % (42.0-52.0); HEMOGLOBIN 11.3 g/dl (13.5-17.5); LYMPH # 0.7 10^3/uL (1.5-5.0); LYMPH % 4.2 % (24.0-44.0); MEAN CORPUSCULAR HEMOGLOBIN 29.2 pg (27.0-33.0); MEAN CORPUSCULAR HGB CONC 31.1 g/dl (32.0-36.5); MEAN CORPUSCULAR VOLUME 93.8 fl (80.0-96.0); MONO # 0.6 10^3/uL (0.0-0.8); MONO % 3.1 % (2.0-8.0); NEUTROPHILS # 16.3 10^3/uL (1.5-8.5); NEUTROPHILS % 91.6 % (36.0-66.0); PLATELET COUNT, AUTOMATED 105 10^3/uL (150-450); RED BLOOD COUNT 3.87 10^6/uL (4.30-6.10); WHITE BLOOD COUNT 17.8 10^3/uL (4.0-10.0)
[2023-05-07 05:21] LABS: ALBUMIN 2.6 G/DL (3.2-5.2); BILIRUBIN,TOTAL 0.7 MG/DL (0.3-1.2); CALCIUM LEVEL 8.3 MG/DL (8.3-10.6); CREATININE FOR GFR 1.5 MG/DL (0.70-1.30); GLOMERULAR FILTRATION RATE 47.7 (>35); MAGNESIUM LEVEL 1.9 MG/DL (1.8-2.4); TOTAL PROTEIN 5.6 G/DL (5.7-8.2)
[2023-05-07] MEDS: INSULIN LISPRO (NovoLOG) PER UNIT SC SCH ×3 (06:00→18:00)
[2023-05-07 08:00] VITALS: BP 124/71; TEMP 98.2; O2SAT 98
[2023-05-07] MEDS: PANTOPRAZOLE 40MG TAB (PROTONIX) PO SCH (08:10)
[2023-05-07] MEDS: METOPROLOL TART 25 MG TABLET PO SCH ×2 (08:10→20:06)
[2023-05-07] MEDS: ASPIRIN 81MG ENTERIC TABLET PO SCH (08:10)
[2023-05-07] MEDS: ALPRAZolam 0.25 MG TAB PO SCH ×2 (08:10→20:06)
[2023-05-07] MEDS: MULTIVITAMINS/MINERALS THERAP 1 TAB PO SCH (09:00)
[2023-05-07] MEDS: CIPRODEX OTIC SUSP 7.5ML AS SCH ×2 (09:00→20:06)
[2023-05-07] MEDS ORDERED: LIDOCAINE 1% MDV 20ML VIAL As Ordered ONE (10:46)
[2023-05-07 12:26] VITALS: BP 125/58; TEMP 98.1; O2SAT 93
[2023-05-07 16:00] VITALS: BP 127/58; TEMP 97.8; O2SAT 94
[2023-05-07] MEDS: NS 1,000 ML IV SCH (17:10)
[2023-05-07 20:00] VITALS: BP 125/59; TEMP 98.9; O2SAT 93
[2023-05-07] MEDS: EZETIMIBE 10MG TABLET (ZETIA) PO SCH (20:05)
[2023-05-07] MEDS: ATORVASTATIN 20 MG TAB PO SCH (20:05)
[2023-05-07] MEDS: HEPARIN DRIP 25,000 UNITS in IV 1 EA IV SCH (21:56)
[2023-05-08] VITALS (8 sets, daily range): BP systolic 119–151; BP diastolic 56–64; TEMP 97–99.1; O2SAT 92–100
[2023-05-08] MEDS: INSULIN LISPRO (NovoLOG) PER UNIT SC SCH ×5 (00:26→21:00)
[2023-05-08] MEDS: PIPERACILLIN/TAZOBACTAM SOD 3.375 GM in D5W MINI-BAG PLUS 50 ML IV SCH ×4 (00:26→17:35)
[2023-05-08] MEDS: ACETAMINOPHEN TAB 650MG DOSE (2X325MG) PO PRN ×2 (04:06→14:36)
[2023-05-08 04:37] LABS: BASO % 0.1 % (0.0-1.0); EOS % 0.1 % (0.0-3.0); HEMATOCRIT 38.6 % (42.0-52.0); HEMOGLOBIN 11.9 g/dl (13.5-17.5); LYMPH # 0.9 10^3/uL (1.5-5.0); LYMPH % 6.7 % (24.0-44.0); MEAN CORPUSCULAR HGB CONC 30.8 g/dl (32.0-36.5); MEAN CORPUSCULAR VOLUME 94.1 fl (80.0-96.0); MONO # 0.3 10^3/uL (0.0-0.8); MONO % 2.3 % (2.0-8.0); NEUTROPHILS # 12.5 10^3/uL (1.5-8.5); NEUTROPHILS % 90.2 % (36.0-66.0); PLATELET COUNT, AUTOMATED 116 10^3/uL (150-450); WHITE BLOOD COUNT 13.9 10^3/uL (4.0-10.0)
[2023-05-08 05:44] LABS: ALBUMIN 2.5 G/DL (3.2-5.2); BILIRUBIN,TOTAL 0.9 MG/DL (0.3-1.2); CALCIUM LEVEL 8.5 MG/DL (8.3-10.6); CREATININE FOR GFR 1.26 MG/DL (0.70-1.30); GLOMERULAR FILTRATION RATE 58.3 (>35); MAGNESIUM LEVEL 1.9 MG/DL (1.8-2.4); POTASSIUM SERUM 4.7 MMOL/L (3.5-5.1); TOTAL PROTEIN 5.7 G/DL (5.7-8.2)
[2023-05-08] MEDS: ENOXAPARIN 100MG/1ML SYRINGE (J1650 PER 10MG) SC SCH ×2 (09:00→21:30)
[2023-05-08] MEDS ORDERED: LEVEMIR (INSULIN DETEMIR) 1 UNITS/0.01ML SC SCH (09:00)
[2023-05-08] MEDS: ASPIRIN 81MG ENTERIC TABLET PO SCH (09:26)
[2023-05-08] MEDS: ALPRAZolam 0.25 MG TAB PO SCH ×2 (09:26→21:29)
[2023-05-08] MEDS: MULTIVITAMINS/MINERALS THERAP 1 TAB PO SCH (09:26)
[2023-05-08] MEDS: PANTOPRAZOLE 40MG TAB (PROTONIX) PO SCH (09:26)
[2023-05-08] MEDS: CIPRODEX OTIC SUSP 7.5ML AS SCH ×2 (09:27→21:00)
[2023-05-08] MEDS: METOPROLOL TART 25 MG TABLET PO SCH ×3 (09:32→17:35)
[2023-05-08] MEDS: EZETIMIBE 10MG TABLET (ZETIA) PO SCH (21:29)
[2023-05-08] MEDS: ATORVASTATIN 20 MG TAB PO SCH (21:29)
[2023-05-09] VITALS (8 sets, daily range): BP systolic 125–167; BP diastolic 56–75; TEMP 96.6–98.1; O2SAT 89–97
[2023-05-09] MEDS: METOPROLOL TART 25 MG TABLET PO SCH ×2 (00:26→05:53)
[2023-05-09] MEDS: PIPERACILLIN/TAZOBACTAM SOD 3.375 GM in D5W MINI-BAG PLUS 50 ML IV SCH ×4 (00:27→18:28)
[2023-05-09] MEDS: ACETAMINOPHEN TAB 650MG DOSE (2X325MG) PO PRN ×2 (00:33→11:12)
[2023-05-09 05:07] LABS: BASO % 0.1 % (0.0-1.0); EOS # 0.1 10^3/uL (0.0-0.5); EOS % 0.8 % (0.0-3.0); HEMATOCRIT 35.8 % (42.0-52.0); HEMOGLOBIN 10.9 g/dl (13.5-17.5); LYMPH % 9.3 % (24.0-44.0); MEAN CORPUSCULAR HEMOGLOBIN 28.5 pg (27.0-33.0); MEAN CORPUSCULAR HGB CONC 30.4 g/dl (32.0-36.5); MEAN CORPUSCULAR VOLUME 93.7 fl (80.0-96.0); MONO # 0.5 10^3/uL (0.0-0.8); MONO % 4.3 % (2.0-8.0); NEUTROPHILS # 9.6 10^3/uL (1.5-8.5); PLATELET COUNT, AUTOMATED 118 10^3/uL (150-450); RED BLOOD COUNT 3.82 10^6/uL (4.30-6.10); WHITE BLOOD COUNT 11.2 10^3/uL (4.0-10.0)
[2023-05-09 05:33] LABS: ALBUMIN 2.2 G/DL (3.2-5.2); ALKALINE PHOSPHATASE 62 U/L (46-116); ALT/SGPT 39 U/L (7.0-40); AST/SGOT 30 U/L (<34); BILIRUBIN,TOTAL 0.6 MG/DL (0.3-1.2); BLOOD UREA NITROGEN 25 MG/DL (9-23); CALCIUM LEVEL 8.6 MG/DL (8.3-10.6); CARBON DIOXIDE LEVEL 29 MMOL/L (20-31); CHLORIDE LEVEL 105 MMOL/L (98-107); CREATININE FOR GFR 1.13 MG/DL (0.70-1.30); GLOMERULAR FILTRATION RATE > 60.0 (>35); GLUCOSE, FASTING 180 MG/DL (74-106); MAGNESIUM LEVEL 1.4 MG/DL (1.8-2.4); POTASSIUM SERUM 4.4 MMOL/L (3.5-5.1); SODIUM LEVEL 140 MMOL/L (136-145); TOTAL PROTEIN 5.4 G/DL (5.7-8.2)
[2023-05-09] MEDS ORDERED: MAG SULF 1GM/100ML (MAG RUN) 1 GM in IV 1 EA IV ONE (08:00)
[2023-05-09] MEDS: INSULIN LISPRO (NovoLOG) PER UNIT SC SCH ×4 (08:23→20:28)
[2023-05-09] MEDS: ASPIRIN 81MG ENTERIC TABLET PO SCH (08:24)
[2023-05-09] MEDS: PANTOPRAZOLE 40MG TAB (PROTONIX) PO SCH (08:24)
[2023-05-09] MEDS: ALPRAZolam 0.25 MG TAB PO SCH ×2 (08:24→20:50)
[2023-05-09] MEDS: ENOXAPARIN 100MG/1ML SYRINGE (J1650 PER 10MG) SC SCH (08:24)
[2023-05-09] MEDS: MULTIVITAMINS/MINERALS THERAP 1 TAB PO SCH (08:25)
[2023-05-09] MEDS: MAGNESIUM OXIDE 400MG TAB (MAG-OX) PO SCH ×2 (08:25→20:50)
[2023-05-09] MEDS ORDERED: LEVEMIR (INSULIN DETEMIR) 1 UNITS/0.01ML SC SCH (09:00)
[2023-05-09] MEDS ORDERED: FUROSEMIDE 20MG/2ML VIAL IV ONE (12:30)
[2023-05-09] MEDS: hydroCHLOROthiazide 12.5 MG CAPSULE PO SCH (13:05)
[2023-05-09] MEDS: CIPRODEX OTIC SUSP 7.5ML AS SCH ×2 (13:06→20:50)
[2023-05-09] MEDS ORDERED: ACET1TAB55 PO (16:36)
[2023-05-09] MEDS ORDERED: LOPR1TAB6 PO (16:36)
[2023-05-09] MEDS ORDERED: MAGN400T2 PO (16:36)
[2023-05-09] MEDS ORDERED: LEVO1TAB39 PO (16:37)
[2023-05-09] MEDS: EZETIMIBE 10MG TABLET (ZETIA) PO SCH (20:50)
[2023-05-09] MEDS: ATORVASTATIN 20 MG TAB PO SCH (20:50)
[2023-05-09] MEDS: APIXABAN 5 MG TAB (ELIQUIS) PO SCH (20:50)
[2023-05-09] MEDS: METOPROLOL TART 50 MG TAB PO SCH (20:51)
[2023-05-10] MEDS: PIPERACILLIN/TAZOBACTAM SOD 3.375 GM in D5W MINI-BAG PLUS 50 ML IV SCH ×2 (00:39→06:06)
[2023-05-10 03:53] VITALS: BP 168/70; TEMP 97.4; O2SAT 88; O2SAT 92
[2023-05-10 06:52] LABS: BASO % 0.2 % (0.0-1.0); EOS # 0.1 10^3/uL (0.0-0.5); HEMATOCRIT 38.1 % (42.0-52.0); HEMOGLOBIN 12.2 g/dl (13.5-17.5); LYMPH # 1.2 10^3/uL (1.5-5.0); LYMPH % 11.6 % (24.0-44.0); MEAN CORPUSCULAR HEMOGLOBIN 29.3 pg (27.0-33.0); MEAN CORPUSCULAR VOLUME 91.6 fl (80.0-96.0); MONO # 0.6 10^3/uL (0.0-0.8); MONO % 5.7 % (2.0-8.0); NEUTROPHILS # 8.1 10^3/uL (1.5-8.5); PLATELET COUNT, AUTOMATED 159 10^3/uL (150-450); RED BLOOD COUNT 4.16 10^6/uL (4.30-6.10)
[2023-05-10 07:22] LABS: ALBUMIN 2.5 G/DL (3.2-5.2); ALKALINE PHOSPHATASE 88 U/L (46-116); ALT/SGPT 63 U/L (7.0-40); AST/SGOT 38 U/L (<34); BILIRUBIN,TOTAL 0.7 MG/DL (0.3-1.2); BLOOD UREA NITROGEN 21 MG/DL (9-23); CALCIUM LEVEL 9.3 MG/DL (8.3-10.6); CARBON DIOXIDE LEVEL 32 MMOL/L (20-31); CHLORIDE LEVEL 100 MMOL/L (98-107); CREATININE FOR GFR 1.06 MG/DL (0.70-1.30); GLOMERULAR FILTRATION RATE > 60.0 (>35); GLUCOSE, FASTING 223 MG/DL (74-106); MAGNESIUM LEVEL 1.4 MG/DL (1.8-2.4); POTASSIUM SERUM 4.1 MMOL/L (3.5-5.1); SODIUM LEVEL 140 MMOL/L (136-145); TOTAL PROTEIN 6.2 G/DL (5.7-8.2)
[2023-05-10 07:49] VITALS: BP 125/69; TEMP 97.2; O2SAT 93
[2023-05-10] MEDS ORDERED: LEVEMIR (INSULIN DETEMIR) 1 UNITS/0.01ML SC SCH (09:00)
[2023-05-10] MEDS: ALPRAZolam 0.25 MG TAB PO SCH (10:07)
[2023-05-10] MEDS: ASPIRIN 81MG ENTERIC TABLET PO SCH (10:07)
[2023-05-10] MEDS: INSULIN LISPRO (NovoLOG) PER UNIT SC SCH ×2 (10:07→12:39)
[2023-05-10] MEDS: hydroCHLOROthiazide 12.5 MG CAPSULE PO SCH (10:07)
[2023-05-10 10:08] VITALS: BP 125/69
[2023-05-10] MEDS: APIXABAN 5 MG TAB (ELIQUIS) PO SCH (10:08)
[2023-05-10] MEDS: MULTIVITAMINS/MINERALS THERAP 1 TAB PO SCH (10:08)
[2023-05-10] MEDS: MAGNESIUM OXIDE 400MG TAB (MAG-OX) PO SCH (10:08)
[2023-05-10] MEDS: PANTOPRAZOLE 40MG TAB (PROTONIX) PO SCH (10:08)
[2023-05-10] MEDS: METOPROLOL TART 50 MG TAB PO SCH (10:08)
[2023-05-10] MEDS: CIPRODEX OTIC SUSP 7.5ML AS SCH (10:09)
[2023-05-10 11:30] VITALS: BP 132/65; TEMP 98; O2SAT 95
== END 2023-05-10 14:13 | disposition home health service (06) | DRG 872 ==
LOC: EDSEX 17:59 → EDBD 17:59 → M ED 17:59 → M ED INP 05-06 01:48 → M ICU 05-06 03:30 → M PCU 05-08 18:15
PROVIDERS: ADMIT Internal Medicine; ATTEND Internal Medicine
PROC: 0F9430Z Drainage of Gallbladder with Drainage Device, Percutaneous Approach (ICD-10-PCS; principal; 2023-05-07 16:00)
DX: A41.9 Sepsis, unspecified organism (principal); I50.32 Chronic diastolic (congestive) heart failure; K80.00 Calculus of gallbladder with acute cholecystitis without obstruction; N17.9 Acute kidney failure, unspecified; J98.11 Atelectasis; E11.9 Type 2 diabetes mellitus without complications; E83.42 Hypomagnesemia; B96.20 Unspecified Escherichia coli [E. coli] as the cause of diseases classified elsewhere; B96.4 Proteus (mirabilis) (morganii) as the cause of diseases classified elsewhere; I25.10 Atherosclerotic heart disease of native coronary artery without angina pectoris; I11.0 Hypertensive heart disease with heart failure; E78.5 Hyperlipidemia, unspecified; I48.0 Paroxysmal atrial fibrillation; Z79.01 Long term (current) use of anticoagulants; Z90.49 Acquired absence of other specified parts of digestive tract; Z79.4 Long term (current) use of insulin; Z79.82 Long term (current) use of aspirin; Z79.899 Other long term (current) drug therapy; Z88.8 Allergy status to other drugs, medicaments and biological substances; Z88.3 Allergy status to other anti-infective agents; Z95.5 Presence of coronary angioplasty implant and graft; Z95.2 Presence of prosthetic heart valve

== ENCOUNTER → 2023-05-24 | Outpatient (REF) | payer MEDICARE, OTHER ==
[~2023-05-24] MED LIST changes: +ACET1TAB55 PO; +LEVO1TAB39 PO; +LOPR1TAB6 PO; +MAGN400T2 PO
== END ==
LOC: M LAB REF 16:27
PROVIDERS: ATTEND Family Medicine
DX: K81.9 Cholecystitis, unspecified (principal)

== ENCOUNTER → 2023-06-01 | Outpatient (CLI) | payer MEDICARE, OTHER | LOC: M RAD 07:31 | PROVIDERS: ATTEND Physician Assistant | DX: K81.0 Acute cholecystitis (principal) | CPT/HCPCS: 78227; A9537 ==

== ENCOUNTER 2023-06-20 21:42 | Inpatient (IN) | payer MEDICARE, OTHER ==
[~2023-06-20] VITALS: Ht 177.8 cm; Wt 98.5 kg
[2023-06-20] MEDS: MORPHINE 4 MG/ML 1ML VIAL IV PRN ×2 (22:15→23:43)
[2023-06-20 22:25] LABS: BASO % 0.1 % (0.0-1.0); EOS % 0.1 % (0.0-3.0); HEMOGLOBIN 12.1 g/dl (13.5-17.5); LYMPH % 5.8 % (24.0-44.0); MEAN CORPUSCULAR HEMOGLOBIN 29.2 pg (27.0-33.0); MEAN CORPUSCULAR HGB CONC 31.8 g/dl (32.0-36.5); MEAN CORPUSCULAR VOLUME 91.8 fl (80.0-96.0); MONO # 0.5 10^3/uL (0.0-0.8); NEUTROPHILS # 15.4 10^3/uL (1.5-8.5); NEUTROPHILS % 90.6 % (36.0-66.0); PLATELET COUNT, AUTOMATED 142 10^3/uL (150-450); RED BLOOD COUNT 4.14 10^6/uL (4.30-6.10)
[2023-06-20 22:54] LABS: CK-MB VALUE MASS 1.4 NG/ML (<3.6)
[2023-06-20 22:56] LABS: ALBUMIN 3.3 G/DL (3.2-5.2); BILIRUBIN,DIRECT 0.5 MG/DL (<0.4); BILIRUBIN,TOTAL 1.3 MG/DL (0.3-1.2); CREATININE FOR GFR 1.28 MG/DL (0.70-1.30); GLOMERULAR FILTRATION RATE 57.1 (>35); TOTAL PROTEIN 6.6 G/DL (5.7-8.2)
[2023-06-20] MEDS ORDERED: ONDANSETRON 4MG 2ML VIAL IV ONE (23:00)
[2023-06-20] MEDS ORDERED: methylPREDNISolone 125MG 2ML VIAL IV ONE (23:35)
[2023-06-20] MEDS ORDERED: diphenhydrAMINE 50MG/ML VIAL IV ONE (23:35)
[2023-06-21] VITALS (18 sets, daily range): BP systolic 107–144; BP diastolic 53–85; TEMP 97.3–98.1; O2SAT 88–95
[2023-06-21] MEDS ORDERED: ISOVUE-370 76% 100ML VIAL As Ordered ONE (00:07)
[2023-06-21] MEDS ORDERED: PIPERACILLIN/TAZOBACTAM SOD 3.375 GM in D5W MINI-BAG PLUS 50 ML IV ONE (02:20)
[2023-06-21 02:36] LABS: CK-MB VALUE MASS < 1.0 NG/ML (<3.6)
[2023-06-21 02:39] LABS: CPK CREATINE PHOSPHOKINASE 33 U/L (46-171); MB/CK RELATIVE INDEX 3.03 (< OR =4)
[2023-06-21] MEDS ORDERED: MAGN400T2 PO (03:39)
[2023-06-21] MEDS ORDERED: METO1TAB87 PO (03:39)
[2023-06-21] MEDS ORDERED: CIPR7.5D2 AS (03:39)
[2023-06-21] MEDS ORDERED: HOME MED LIST COMPLETE! XX SCH (03:40)
[2023-06-21] MEDS ORDERED: NS 1,000 ML IV SCH (04:40)
[2023-06-21] MEDS ORDERED: MOM 30ML SUSPENSION UDC PO PRN (04:40)
[2023-06-21] MEDS ORDERED: MAALOX 30 ML SUSP *UDC PO PRN (04:40)
[2023-06-21] MEDS: METOPROLOL TART 50 MG TAB PO SCH ×2 (05:30→20:38)
[2023-06-21 07:31] LABS: BASO % 0.1 % (0.0-1.0); HEMATOCRIT 38.8 % (42.0-52.0); HEMOGLOBIN 12.1 g/dl (13.5-17.5); LYMPH # 0.6 10^3/uL (1.5-5.0); LYMPH % 2.7 % (24.0-44.0); MEAN CORPUSCULAR HEMOGLOBIN 29.2 pg (27.0-33.0); MEAN CORPUSCULAR HGB CONC 31.2 g/dl (32.0-36.5); MEAN CORPUSCULAR VOLUME 93.7 fl (80.0-96.0); MONO # 0.2 10^3/uL (0.0-0.8); MONO % 0.9 % (2.0-8.0); NEUTROPHILS # 20.4 10^3/uL (1.5-8.5); NEUTROPHILS % 95.6 % (36.0-66.0); PLATELET COUNT, AUTOMATED 149 10^3/uL (150-450); RED BLOOD COUNT 4.14 10^6/uL (4.30-6.10); WHITE BLOOD COUNT 21.3 10^3/uL (4.0-10.0)
[2023-06-21 08:04] LABS: BILIRUBIN,TOTAL 1.1 MG/DL (0.3-1.2); CALCIUM LEVEL 9.1 MG/DL (8.3-10.6); CREATININE FOR GFR 1.41 MG/DL (0.70-1.30); GLOMERULAR FILTRATION RATE 51.1 (>35); MAGNESIUM LEVEL 1.5 MG/DL (1.8-2.4); POTASSIUM SERUM 5.4 MMOL/L (3.5-5.1); TOTAL PROTEIN 6.2 G/DL (5.7-8.2)
[2023-06-21] MEDS: LEVEMIR (INSULIN DETEMIR) 1 UNITS/0.01ML SC SCH (08:21)
[2023-06-21] MEDS: PIPERACILLIN/TAZOBACTAM SOD 3.375 GM in D5W MINI-BAG PLUS 50 ML IV SCH ×3 (08:31→20:38)
[2023-06-21] MEDS: ASPIRIN 81MG ENTERIC TABLET PO SCH (08:32)
[2023-06-21] MEDS: amLODIPine 5 MG TAB PO SCH (08:32)
[2023-06-21] MEDS: MULTIVITAMINS/MINERALS THERAP 1 TAB PO SCH (08:32)
[2023-06-21] MEDS: PANTOPRAZOLE 40MG TAB (PROTONIX) PO SCH (08:32)
[2023-06-21] MEDS: SENOKOT S TAB PO SCH ×2 (08:32→20:36)
[2023-06-21] MEDS: CIPRODEX OTIC SUSP 7.5ML AS SCH ×2 (08:33→20:39)
[2023-06-21] MEDS ORDERED: APIXABAN 5 MG TAB (ELIQUIS) PO SCH (09:00)
[2023-06-21] MEDS ORDERED: GLUCAGON INJ 1MG VIAL SC PRN (11:30)
[2023-06-21] MEDS ORDERED: DEXTROSE 50% 50ML SYRINGE IV PRN (11:30)
[2023-06-21] MEDS ORDERED: GLUCOSE 4GM CHEW TABLET PO PRN (11:30)
[2023-06-21 11:39] LABS: C REACTIVE PROTEIN QUANTITATIV 29.2 MG/DL (<1.0)
[2023-06-21 11:40] LABS: CALCIUM LEVEL 8.6 MG/DL (8.3-10.6); CREATININE FOR GFR 1.5 MG/DL (0.70-1.30); GLOMERULAR FILTRATION RATE 47.6 (>35)
[2023-06-21] MEDS ORDERED: HumuLIN R (REGULAR) INSULIN (NovoLIN R) **100U/ML** PER UNIT IV STA ×2 (11:49→18:21)
[2023-06-21] MEDS ORDERED: CALCIUM GLUCONATE 1,000 MG in D5W MINI-BAG PLUS 100 ML IV ONE (11:50)
[2023-06-21] MEDS ORDERED: D5W/0.45% SODIUM CHLORIDE 1,000 ML IV SCH (12:00)
[2023-06-21] MEDS ORDERED: PATIROMER SORBITEX CALCIUM 8.4 GM POWDER PACKET (VELTASSA) PO ONE (12:00)
[2023-06-21] MEDS: INSULIN LISPRO (NovoLOG) PER UNIT SC SCH ×3 (12:34→23:19)
[2023-06-21] MEDS: MAG SULF 1GM/100ML (MAG RUN) 1 GM in IV 1 EA IV SCH ×2 (12:34→13:59)
[2023-06-21] MEDS ORDERED: MORPHINE 2 MG/ML 1ML VIAL As Ordered ONE (12:54)
[2023-06-21] MEDS ORDERED: MORPHINE 2 MG/ML 1ML VIAL IV ONE (12:55)
[2023-06-21] MEDS: MORPHINE 2 MG/ML 1ML VIAL IV PRN ×3 (13:10→23:20)
[2023-06-21 17:05] LABS: CALCIUM LEVEL 9.3 MG/DL (8.3-10.6); CREATININE FOR GFR 1.55 MG/DL (0.70-1.30); GLOMERULAR FILTRATION RATE 45.8 (>35); POTASSIUM SERUM 5.2 MMOL/L (3.5-5.1)
[2023-06-21] MEDS: EZETIMIBE 10MG TABLET (ZETIA) PO SCH (20:37)
[2023-06-21] MEDS: ATORVASTATIN 20 MG TAB PO SCH (20:37)
[2023-06-21] MEDS: MOM 30ML SUSPENSION UDC PO PRN (20:39)
[2023-06-21] MEDS ORDERED: PERCOCET 5MG/325MG TAB PO ONE (20:45)
[2023-06-21] MEDS ORDERED: LOSARTAN 50MG TABLET PO SCH (21:00)
[2023-06-21 22:36] LABS: CALCIUM LEVEL 9.4 MG/DL (8.3-10.6); CREATININE FOR GFR 1.65 MG/DL (0.70-1.30); GLOMERULAR FILTRATION RATE 42.6 (>35); POTASSIUM SERUM 5.1 MMOL/L (3.5-5.1)
[2023-06-21] MEDS ORDERED: D5W/LR 1,000 ML IV SCH (23:10)
[2023-06-21] MEDS: guaiFENesin ER TABLET 600 MG TAB PO SCH (23:11)
[2023-06-22] VITALS (20 sets, daily range): BP systolic 74–139; BP diastolic 52–64; TEMP 96.5–98; O2SAT 88–96
[2023-06-22] MEDS: PIPERACILLIN/TAZOBACTAM SOD 3.375 GM in D5W MINI-BAG PLUS 50 ML IV SCH ×4 (02:59→22:39)
[2023-06-22] MEDS: INSULIN LISPRO (NovoLOG) PER UNIT SC SCH ×3 (04:39→18:00)
[2023-06-22 06:08] LABS: HEMATOCRIT 37.2 % (42.0-52.0); HEMOGLOBIN 11.7 g/dl (13.5-17.5); LYMPH # 0.5 10^3/uL (1.5-5.0); LYMPH % 1.9 % (24.0-44.0); MEAN CORPUSCULAR HEMOGLOBIN 29.7 pg (27.0-33.0); MEAN CORPUSCULAR HGB CONC 31.5 g/dl (32.0-36.5); MEAN CORPUSCULAR VOLUME 94.4 fl (80.0-96.0); MONO # 0.3 10^3/uL (0.0-0.8); MONO % 1.4 % (2.0-8.0); NEUTROPHILS # 23.3 10^3/uL (1.5-8.5); PLATELET COUNT, AUTOMATED 142 10^3/uL (150-450); RED BLOOD COUNT 3.94 10^6/uL (4.30-6.10); WHITE BLOOD COUNT 24.2 10^3/uL (4.0-10.0)
[2023-06-22 06:47] LABS: ALBUMIN 2.6 G/DL (3.2-5.2); BILIRUBIN,TOTAL 1.2 MG/DL (0.3-1.2); CALCIUM LEVEL 9.2 MG/DL (8.3-10.6); CREATININE FOR GFR 2.04 MG/DL (0.70-1.30); GLOMERULAR FILTRATION RATE 33.4 (>35); MAGNESIUM LEVEL 2.3 MG/DL (1.8-2.4); POTASSIUM SERUM 5.9 MMOL/L (3.5-5.1); TOTAL PROTEIN 5.9 G/DL (5.7-8.2)
[2023-06-22] MEDS ORDERED: HumuLIN R (REGULAR) INSULIN (NovoLIN R) **100U/ML** PER UNIT IV STA (06:52)
[2023-06-22] MEDS ORDERED: CALCIUM GLUCONATE 1,000 MG in D5W MINI-BAG PLUS 100 ML IV SCH (07:30)
[2023-06-22] MEDS ORDERED: HumuLIN R (REGULAR) INSULIN (NovoLIN R) **100U/ML** PER UNIT SC ONE ×2 (07:30→12:00)
[2023-06-22] MEDS: LEVEMIR (INSULIN DETEMIR) 1 UNITS/0.01ML SC SCH (07:31)
[2023-06-22] MEDS: NS 1,000 ML IV SCH ×2 (07:47→20:10)
[2023-06-22] MEDS ORDERED: CALCIUM GLUCONATE 1,000 MG in D5W MINI-BAG PLUS 100 ML IV ONE (08:00)
[2023-06-22] MEDS: METOPROLOL TART 50 MG TAB PO SCH ×2 (08:53→21:00)
[2023-06-22] MEDS: guaiFENesin ER TABLET 600 MG TAB PO SCH ×2 (08:54→22:40)
[2023-06-22] MEDS: PANTOPRAZOLE 40MG TAB (PROTONIX) PO SCH (08:55)
[2023-06-22] MEDS: amLODIPine 5 MG TAB PO SCH (08:55)
[2023-06-22] MEDS: SENOKOT S TAB PO SCH ×2 (08:55→22:40)
[2023-06-22] MEDS: CIPRODEX OTIC SUSP 7.5ML AS SCH ×2 (08:56→22:39)
[2023-06-22] MEDS: MULTIVITAMINS/MINERALS THERAP 1 TAB PO SCH (08:56)
[2023-06-22] MEDS: ASPIRIN 81MG ENTERIC TABLET PO SCH (09:00)
[2023-06-22] MEDS ORDERED: NS 1,000 ML IV ONE (09:35)
[2023-06-22] MEDS: MORPHINE 2 MG/ML 1ML VIAL IV PRN (09:54)
[2023-06-22] MEDS ORDERED: FUROSEMIDE 100MG/10ML VIAL IV ONE (10:00)
[2023-06-22] MEDS ORDERED: CHLOROTHIAZIDE 500MG VIAL IV ONE (10:00)
[2023-06-22] MEDS ORDERED: DEXTROSE 50% 50ML SYRINGE IV SCH (12:00)
[2023-06-22 12:28] LABS: CALCIUM LEVEL 9.4 MG/DL (8.3-10.6); CREATININE FOR GFR 2.11 MG/DL (0.70-1.30); GLOMERULAR FILTRATION RATE 32.1 (>35); POTASSIUM SERUM 5.6 MMOL/L (3.5-5.1)
[2023-06-22] MEDS: PATIROMER SORBITEX CALCIUM 8.4 GM POWDER PACKET (VELTASSA) PO SCH (12:52)
[2023-06-22] MEDS ORDERED: INDOCYANINE GREEN 25MG VIAL (IC-GREEN) As Ordered ONE ×2 (14:37→16:18)
[2023-06-22] MEDS ORDERED: KETOROLAC 60MG 2ML VIAL As Ordered ONE (14:40)
[2023-06-22] MEDS ORDERED: ACETAMINOPHEN 1000MG 100ML IV BAG As Ordered ONE (14:40)
[2023-06-22] MEDS ORDERED: ONDANSETRON 4MG 2ML VIAL As Ordered ONE (14:40)
[2023-06-22] MEDS ORDERED: ROCURONIUM BROMIDE 50MG/5ML VIAL As Ordered ONE (14:40)
[2023-06-22] MEDS ORDERED: propofoL 200 MG/20 ML VIAL As Ordered ONE (14:40)
[2023-06-22] MEDS ORDERED: LIDOCAINE 2% 100MG/5ML SDV (FOR ANES.) As Ordered ONE (14:40)
[2023-06-22] MEDS ORDERED: fentaNYL 100 MCG/2 ML INJECTION As Ordered ONE (14:40)
[2023-06-22] MEDS ORDERED: ZOSYN 3.375GM VIAL As Ordered ONE (16:49)
[2023-06-22] MEDS ORDERED: fentaNYL 100 MCG/2 ML INJECTION IV PRN (18:30)
[2023-06-22] MEDS ORDERED: LR 1,000 ML IV SCH (18:30)
[2023-06-22] MEDS ORDERED: oxyCODONE 5MG TAB PO PRN (18:30)
[2023-06-22] MEDS ORDERED: ONDANSETRON 4MG 2ML VIAL IV PRN (18:30)
[2023-06-22] MEDS: HYDROMORPHONE HCL 0.5 MG/ 0.5 ML SYRINGE IV PRN ×2 (19:08→19:13)
[2023-06-22] MEDS ORDERED: INSULIN LISPRO (NovoLOG) PER UNIT SC PRN (19:15)
[2023-06-22] MEDS ORDERED: SODIUM CHLORIDE 0.9% 1000ML IV ONE (21:05)
[2023-06-22 21:37] LABS: CALCIUM LEVEL 8.9 MG/DL (8.3-10.6); CREATININE FOR GFR 2.11 MG/DL (0.70-1.30); GLOMERULAR FILTRATION RATE 32.1 (>35); POTASSIUM SERUM 5.4 MMOL/L (3.5-5.1)
[2023-06-22 21:44] LABS: HEMATOCRIT 35.7 % (42.0-52.0); HEMOGLOBIN 10.9 g/dl (13.5-17.5)
[2023-06-22] MEDS: MIRALAX *UNIT DOSE* 17GM PACKET PO SCH (22:40)
[2023-06-22] MEDS: ATORVASTATIN 20 MG TAB PO SCH (22:40)
[2023-06-22] MEDS: EZETIMIBE 10MG TABLET (ZETIA) PO SCH (22:40)
[2023-06-23] VITALS (67 sets, daily range): BP systolic 78–144; BP diastolic 39–96; PULSE 122–130; TEMP 96.5–98.4; O2SAT 90–99
[2023-06-23] MEDS: INSULIN LISPRO (NovoLOG) PER UNIT SC SCH ×5 (00:59→20:25)
[2023-06-23] MEDS: NS 1,000 ML IV SCH (02:11)
[2023-06-23] MEDS ORDERED: SODIUM CHLORIDE 0.9% 1000ML IV ONE (03:45)
[2023-06-23] MEDS ORDERED: DIGOXIN INJ 0.5 MG/2 ML AMP IV STA ×2 (04:02→18:00)
[2023-06-23] MEDS ORDERED: NITROGLYCERIN 0.4MG SUBL TABLET SL STA (04:04)
[2023-06-23] MEDS: PIPERACILLIN/TAZOBACTAM SOD 3.375 GM in D5W MINI-BAG PLUS 50 ML IV SCH ×4 (04:17→20:41)
[2023-06-23] MEDS: ACETAMINOPHEN TAB 650MG DOSE (2X325MG) PO PRN (04:19)
[2023-06-23 04:44] LABS: ALBUMIN 2.4 G/DL (3.2-5.2); BILIRUBIN,TOTAL 1.1 MG/DL (0.3-1.2); CREATININE FOR GFR 2.28 MG/DL (0.70-1.30); GLOMERULAR FILTRATION RATE 29.3 (>35); MAGNESIUM LEVEL 2.3 MG/DL (1.8-2.4); POTASSIUM SERUM 5.2 MMOL/L (3.5-5.1)
[2023-06-23 04:54] LABS: BASO % 0.1 % (0.0-1.0); HEMATOCRIT 33.1 % (42.0-52.0); HEMOGLOBIN 10.2 g/dl (13.5-17.5); LYMPH # 0.5 10^3/uL (1.5-5.0); LYMPH % 2.2 % (24.0-44.0); MEAN CORPUSCULAR HEMOGLOBIN 29.7 pg (27.0-33.0); MEAN CORPUSCULAR HGB CONC 30.8 g/dl (32.0-36.5); MEAN CORPUSCULAR VOLUME 96.2 fl (80.0-96.0); MONO # 0.4 10^3/uL (0.0-0.8); MONO % 1.7 % (2.0-8.0); NEUTROPHILS # 20.6 10^3/uL (1.5-8.5); NEUTROPHILS % 95.2 % (36.0-66.0); PLATELET COUNT, AUTOMATED 185 10^3/uL (150-450); RED BLOOD COUNT 3.44 10^6/uL (4.30-6.10); WHITE BLOOD COUNT 21.6 10^3/uL (4.0-10.0)
[2023-06-23] MEDS: MORPHINE 2 MG/ML 1ML VIAL IV PRN (05:15)
[2023-06-23] MEDS ORDERED: METOPROLOL TART 50 MG TAB PO ONE (06:00)
[2023-06-23] MEDS ORDERED: MORPHINE 2 MG/ML 1ML VIAL IV ONE (07:00)
[2023-06-23] MEDS ORDERED: DIGOXIN INJ 0.5 MG/2 ML AMP IV ONE (07:00)
[2023-06-23] MEDS ORDERED: MORPHINE 2 MG/ML 1ML VIAL IV PRN (07:50)
[2023-06-23] MEDS ORDERED: MORPHINE 4 MG/ML 1ML VIAL IV ONE (08:05)
[2023-06-23] MEDS ORDERED: NS 1,000 ML IV ONE (08:10)
[2023-06-23] MEDS: MORPHINE 4 MG/ML 1ML VIAL IV PRN (08:13)
[2023-06-23] MEDS ORDERED: BISACODYL 10MG SUPP PR PRN (09:00)
[2023-06-23] MEDS ORDERED: ENOXAPARIN 40MG/0.4ML SYRINGE (J1650 PER 10MG) SC SCH (09:00)
[2023-06-23] MEDS: DOBUTamine HCL 500,000 MCG in IV 1 EA IV SCH (09:46)
[2023-06-23] MEDS: guaiFENesin ER TABLET 600 MG TAB PO SCH ×2 (09:48→20:38)
[2023-06-23] MEDS: LEVEMIR (INSULIN DETEMIR) 1 UNITS/0.01ML SC SCH (09:48)
[2023-06-23] MEDS: SENOKOT S TAB PO SCH ×2 (09:48→20:39)
[2023-06-23] MEDS: ASPIRIN 81MG ENTERIC TABLET PO SCH (09:48)
[2023-06-23] MEDS: PANTOPRAZOLE 40MG TAB (PROTONIX) PO SCH (09:48)
[2023-06-23] MEDS: CIPRODEX OTIC SUSP 7.5ML AS SCH ×2 (09:49→20:40)
[2023-06-23] MEDS: MIRALAX *UNIT DOSE* 17GM PACKET PO SCH ×2 (09:49→20:36)
[2023-06-23] MEDS: METOPROLOL TART 12.5 MG PER 1/2 TAB PO SCH ×3 (09:53→17:21)
[2023-06-23] MEDS ORDERED: FUROSEMIDE 40MG/4ML VIAL IV ONE (10:00)
[2023-06-23] MEDS ORDERED: FUROSEMIDE 40MG/4ML VIAL IV PRN (12:00)
[2023-06-23] MEDS: PATIROMER SORBITEX CALCIUM 8.4 GM POWDER PACKET (VELTASSA) PO SCH (12:00)
[2023-06-23] MEDS: NOREPINEPHRINE 4MG IN D5 250ML 4 MG in IV 1 EA IV SCH ×4 (12:20→18:36)
[2023-06-23] MEDS: FUROSEMIDE 100MG/10ML VIAL IV SCH (17:21)
[2023-06-23 18:37] LABS: CALCIUM LEVEL 8.6 MG/DL (8.3-10.6); CREATININE FOR GFR 2.43 MG/DL (0.70-1.30); GLOMERULAR FILTRATION RATE 27.3 (>35); MAGNESIUM LEVEL 2.3 MG/DL (1.8-2.4); POTASSIUM SERUM 5.5 MMOL/L (3.5-5.1)
[2023-06-23] MEDS: EZETIMIBE 10MG TABLET (ZETIA) PO SCH (20:37)
[2023-06-23] MEDS: ENOXAPARIN 80MG/0.8ML SYRINGE (J1650 PER 10MG) SC SCH (20:37)
[2023-06-23] MEDS: ALPRAZolam 0.25 MG TAB PO SCH (20:38)
[2023-06-23] MEDS: MAGNESIUM OXIDE 400MG TAB (MAG-OX) PO SCH (20:39)
[2023-06-23] MEDS: ATORVASTATIN 20 MG TAB PO SCH (20:39)
[2023-06-24] VITALS (83 sets, daily range): BP systolic 74–154; BP diastolic 44–71; TEMP 98.3–98.8; O2SAT 87–99
[2023-06-24] MEDS: FUROSEMIDE 100MG/10ML VIAL IV SCH ×2 (00:47→08:56)
[2023-06-24] MEDS: METOPROLOL TART 12.5 MG PER 1/2 TAB PO SCH ×5 (00:48→23:04)
[2023-06-24] MEDS: NOREPINEPHRINE 4MG IN D5 250ML 4 MG in IV 1 EA IV SCH ×2 (01:36)
[2023-06-24] MEDS ORDERED: DIGOXIN INJ 0.5 MG/2 ML AMP IV ONE (02:00)
[2023-06-24] MEDS: VASOPRESSIN INJ 20 UNITS in NS 499 ML IV SCH ×3 (02:54→18:05)
[2023-06-24] MEDS: PIPERACILLIN/TAZOBACTAM SOD 3.375 GM in D5W MINI-BAG PLUS 50 ML IV SCH ×4 (03:57→20:17)
[2023-06-24 04:27] LABS: BASO % 0.1 % (0.0-1.0); HEMATOCRIT 30.9 % (42.0-52.0); HEMOGLOBIN 9.7 g/dl (13.5-17.5); LYMPH # 0.7 10^3/uL (1.5-5.0); MEAN CORPUSCULAR HEMOGLOBIN 29.7 pg (27.0-33.0); MEAN CORPUSCULAR HGB CONC 31.4 g/dl (32.0-36.5); MEAN CORPUSCULAR VOLUME 94.5 fl (80.0-96.0); MONO # 0.5 10^3/uL (0.0-0.8); MONO % 3.6 % (2.0-8.0); NEUTROPHILS # 11.8 10^3/uL (1.5-8.5); NEUTROPHILS % 90.8 % (36.0-66.0); PLATELET COUNT, AUTOMATED 161 10^3/uL (150-450); RED BLOOD COUNT 3.27 10^6/uL (4.30-6.10)
[2023-06-24 05:15] LABS: ALBUMIN 2.1 G/DL (3.2-5.2); BILIRUBIN,TOTAL 0.7 MG/DL (0.3-1.2); CALCIUM LEVEL 8.6 MG/DL (8.3-10.6); CREATININE FOR GFR 2.41 MG/DL (0.70-1.30); GLOMERULAR FILTRATION RATE 27.5 (>35); MAGNESIUM LEVEL 2.2 MG/DL (1.8-2.4); POTASSIUM SERUM 5.1 MMOL/L (3.5-5.1); TOTAL PROTEIN 5.5 G/DL (5.7-8.2)
[2023-06-24] MEDS: MORPHINE 4 MG/ML 1ML VIAL IV PRN (07:30)
[2023-06-24] MEDS: INSULIN LISPRO (NovoLOG) PER UNIT SC SCH ×4 (08:11→19:48)
[2023-06-24] MEDS: LEVEMIR (INSULIN DETEMIR) 1 UNITS/0.01ML SC SCH (08:28)
[2023-06-24] MEDS: ASPIRIN 81MG ENTERIC TABLET PO SCH (08:28)
[2023-06-24] MEDS: ENOXAPARIN 80MG/0.8ML SYRINGE (J1650 PER 10MG) SC SCH (08:28)
[2023-06-24] MEDS: SENOKOT S TAB PO SCH ×2 (08:29→20:18)
[2023-06-24] MEDS: MIRALAX *UNIT DOSE* 17GM PACKET PO SCH ×2 (08:29→20:19)
[2023-06-24] MEDS: MAGNESIUM OXIDE 400MG TAB (MAG-OX) PO SCH ×2 (08:29→20:18)
[2023-06-24] MEDS: ALPRAZolam 0.25 MG TAB PO SCH ×2 (08:29→20:17)
[2023-06-24] MEDS: guaiFENesin ER TABLET 600 MG TAB PO SCH ×2 (08:29→20:17)
[2023-06-24] MEDS: PANTOPRAZOLE 40MG TAB (PROTONIX) PO SCH (08:29)
[2023-06-24] MEDS: DOBUTamine HCL 500,000 MCG in IV 1 EA IV SCH (09:08)
[2023-06-24] MEDS: CIPRODEX OTIC SUSP 7.5ML AS SCH ×2 (09:08→20:20)
[2023-06-24] MEDS: PATIROMER SORBITEX CALCIUM 8.4 GM POWDER PACKET (VELTASSA) PO SCH (11:31)
[2023-06-24 16:06] LABS: CALCIUM LEVEL 8.8 MG/DL (8.3-10.6); CREATININE FOR GFR 2.18 MG/DL (0.70-1.30); GLOMERULAR FILTRATION RATE 30.9 (>35); MAGNESIUM LEVEL 2.2 MG/DL (1.8-2.4); POTASSIUM SERUM 4.7 MMOL/L (3.5-5.1)
[2023-06-24] MEDS: APIXABAN 2.5 MG TAB (ELIQUIS) PO SCH (20:17)
[2023-06-24] MEDS: EZETIMIBE 10MG TABLET (ZETIA) PO SCH (20:18)
[2023-06-24] MEDS: ATORVASTATIN 20 MG TAB PO SCH (20:18)
[2023-06-24] MEDS: ACETAMINOPHEN TAB 650MG DOSE (2X325MG) PO PRN (20:19)
[2023-06-25] VITALS (10 sets, daily range): BP systolic 115–182; BP diastolic 55–91; TEMP 97–99.8; O2SAT 89–97
[2023-06-25] MEDS: VASOPRESSIN INJ 20 UNITS in NS 499 ML IV SCH (03:00)
[2023-06-25] MEDS: PIPERACILLIN/TAZOBACTAM SOD 3.375 GM in D5W MINI-BAG PLUS 50 ML IV SCH ×4 (03:41→21:48)
[2023-06-25] MEDS: METOPROLOL TART 12.5 MG PER 1/2 TAB PO SCH (05:04)
[2023-06-25 05:19] LABS: BASO % 0.1 % (0.0-1.0); EOS # 0.1 10^3/uL (0.0-0.5); EOS % 0.7 % (0.0-3.0); HEMATOCRIT 30.5 % (42.0-52.0); HEMOGLOBIN 9.7 g/dl (13.5-17.5); LYMPH # 1.1 10^3/uL (1.5-5.0); LYMPH % 9.5 % (24.0-44.0); MEAN CORPUSCULAR HEMOGLOBIN 29.3 pg (27.0-33.0); MEAN CORPUSCULAR HGB CONC 31.8 g/dl (32.0-36.5); MEAN CORPUSCULAR VOLUME 92.1 fl (80.0-96.0); MONO # 0.6 10^3/uL (0.0-0.8); MONO % 5.2 % (2.0-8.0); NEUTROPHILS # 9.9 10^3/uL (1.5-8.5); NEUTROPHILS % 84.2 % (36.0-66.0); PLATELET COUNT, AUTOMATED 178 10^3/uL (150-450); RED BLOOD COUNT 3.31 10^6/uL (4.30-6.10); WHITE BLOOD COUNT 11.8 10^3/uL (4.0-10.0)
[2023-06-25 05:58] LABS: ALBUMIN 2.3 G/DL (3.2-5.2); BILIRUBIN,TOTAL 0.9 MG/DL (0.3-1.2); CREATININE FOR GFR 1.65 MG/DL (0.70-1.30); GLOMERULAR FILTRATION RATE 42.6 (>35); POTASSIUM SERUM 4.3 MMOL/L (3.5-5.1); TOTAL PROTEIN 5.7 G/DL (5.7-8.2)
[2023-06-25] MEDS: INSULIN LISPRO (NovoLOG) PER UNIT SC SCH ×4 (07:28→21:00)
[2023-06-25] MEDS: MAGNESIUM OXIDE 400MG TAB (MAG-OX) PO SCH ×2 (08:53→21:49)
[2023-06-25] MEDS: LEVEMIR (INSULIN DETEMIR) 1 UNITS/0.01ML SC SCH (08:53)
[2023-06-25] MEDS: MIRALAX *UNIT DOSE* 17GM PACKET PO SCH (08:53)
[2023-06-25] MEDS: PANTOPRAZOLE 40MG TAB (PROTONIX) PO SCH (08:54)
[2023-06-25] MEDS: ASPIRIN 81MG ENTERIC TABLET PO SCH (08:54)
[2023-06-25] MEDS: guaiFENesin ER TABLET 600 MG TAB PO SCH (08:54)
[2023-06-25] MEDS: APIXABAN 2.5 MG TAB (ELIQUIS) PO SCH ×2 (08:54→21:49)
[2023-06-25] MEDS: SENOKOT S TAB PO SCH (08:54)
[2023-06-25] MEDS: CIPRODEX OTIC SUSP 7.5ML AS SCH ×2 (08:55→21:49)
[2023-06-25] MEDS: ALPRAZolam 0.25 MG TAB PO SCH (08:55)
[2023-06-25] MEDS ORDERED: METOPROLOL TART 50 MG TAB PO SCH (09:00)
[2023-06-25] MEDS: PATIROMER SORBITEX CALCIUM 8.4 GM POWDER PACKET (VELTASSA) PO SCH (11:46)
[2023-06-25] MEDS ORDERED: SENOKOT S TAB PO PRN (12:40)
[2023-06-25] MEDS ORDERED: MIRALAX *UNIT DOSE* 17GM PACKET PO PRN (12:40)
[2023-06-25] MEDS: METOPROLOL TART 50 MG TAB PO SCH ×2 (13:00→17:15)
[2023-06-25] MEDS: EZETIMIBE 10MG TABLET (ZETIA) PO SCH (21:48)
[2023-06-25] MEDS: ATORVASTATIN 20 MG TAB PO SCH (21:48)
[2023-06-26] MEDS: METOPROLOL TART 50 MG TAB PO SCH ×2 (00:58→06:19)
[2023-06-26] MEDS: MORPHINE 2 MG/ML 1ML VIAL IV PRN (01:06)
[2023-06-26] MEDS: PIPERACILLIN/TAZOBACTAM SOD 3.375 GM in D5W MINI-BAG PLUS 50 ML IV SCH ×4 (03:34→21:32)
[2023-06-26] MEDS ORDERED: RAMELTEON 8 MG TAB (ROZEREM) PO PRN (03:55)
[2023-06-26 04:33] VITALS: BP 147/66; TEMP 97.6; O2SAT 94
[2023-06-26] MEDS: MORPHINE 4 MG/ML 1ML VIAL IV PRN (06:19)
[2023-06-26 07:16] LABS: BASO % 0.2 % (0.0-1.0); EOS # 0.3 10^3/uL (0.0-0.5); EOS % 3.2 % (0.0-3.0); HEMATOCRIT 32.3 % (42.0-52.0); HEMOGLOBIN 10.1 g/dl (13.5-17.5); LYMPH # 1.5 10^3/uL (1.5-5.0); LYMPH % 14.1 % (24.0-44.0); MEAN CORPUSCULAR HEMOGLOBIN 28.9 pg (27.0-33.0); MEAN CORPUSCULAR HGB CONC 31.3 g/dl (32.0-36.5); MEAN CORPUSCULAR VOLUME 92.3 fl (80.0-96.0); MONO # 0.6 10^3/uL (0.0-0.8); MONO % 5.9 % (2.0-8.0); NEUTROPHILS # 7.9 10^3/uL (1.5-8.5); NEUTROPHILS % 76.1 % (36.0-66.0); PLATELET COUNT, AUTOMATED 186 10^3/uL (150-450); WHITE BLOOD COUNT 10.3 10^3/uL (4.0-10.0)
[2023-06-26 07:45] LABS: ALBUMIN 2.2 G/DL (3.2-5.2); ALKALINE PHOSPHATASE 75 U/L (46-116); ALT/SGPT 79 U/L (7.0-40); AST/SGOT 77 U/L (<34); BLOOD UREA NITROGEN 40 MG/DL (9-23); CALCIUM LEVEL 9.2 MG/DL (8.3-10.6); CARBON DIOXIDE LEVEL 31 MMOL/L (20-31); CHLORIDE LEVEL 103 MMOL/L (98-107); CREATININE FOR GFR 1.12 MG/DL (0.70-1.30); GLOMERULAR FILTRATION RATE > 60.0 (>35); GLUCOSE, FASTING 182 MG/DL (74-106); MAGNESIUM LEVEL 1.7 MG/DL (1.8-2.4); POTASSIUM SERUM 4.4 MMOL/L (3.5-5.1); SODIUM LEVEL 142 MMOL/L (136-145); TOTAL PROTEIN 5.6 G/DL (5.7-8.2)
[2023-06-26 08:00] VITALS: BP 135/59; TEMP 97.8; O2SAT 95; O2SAT 97
[2023-06-26] MEDS: LEVEMIR (INSULIN DETEMIR) 1 UNITS/0.01ML SC SCH (08:39)
[2023-06-26] MEDS: ACETAMINOPHEN TAB 650MG DOSE (2X325MG) PO PRN (08:40)
[2023-06-26] MEDS: MAGNESIUM OXIDE 400MG TAB (MAG-OX) PO SCH ×2 (08:40→21:31)
[2023-06-26] MEDS: PANTOPRAZOLE 40MG TAB (PROTONIX) PO SCH (08:40)
[2023-06-26] MEDS: ASPIRIN 81MG ENTERIC TABLET PO SCH (08:44)
[2023-06-26] MEDS: APIXABAN 2.5 MG TAB (ELIQUIS) PO SCH (08:44)
[2023-06-26] MEDS: INSULIN LISPRO (NovoLOG) PER UNIT SC SCH ×4 (08:45→21:00)
[2023-06-26] MEDS: CIPRODEX OTIC SUSP 7.5ML AS SCH ×2 (08:46→21:31)
[2023-06-26] MEDS ORDERED: ALPRAZolam 0.25 MG TAB PO PRN (09:00)
[2023-06-26] MEDS ORDERED: PERCOCET 5MG/325MG TAB PO PRN (10:45)
[2023-06-26 12:00] VITALS: BP 139/62; TEMP 97.7; O2SAT 93
[2023-06-26] MEDS: SODIUM CHLORIDE NASAL 0.65% SPRAY BTL (OCEAN) SCH ×2 (12:30→21:31)
[2023-06-26] MEDS: METOPROLOL TART 25 MG TABLET PO SCH ×2 (12:34→17:01)
[2023-06-26 16:00] VITALS: BP 136/69; TEMP 98.2; O2SAT 95
[2023-06-26 20:00] VITALS: BP 164/70; TEMP 97.4; O2SAT 98
[2023-06-26] MEDS: EZETIMIBE 10MG TABLET (ZETIA) PO SCH (21:31)
[2023-06-26] MEDS: APIXABAN 5 MG TAB (ELIQUIS) PO SCH (21:31)
[2023-06-26] MEDS: ATORVASTATIN 20 MG TAB PO SCH (21:32)
[2023-06-27] MEDS: METOPROLOL TART 25 MG TABLET PO SCH ×2 (00:11→06:33)
[2023-06-27 00:12] VITALS: BP 170/80; TEMP 97.9; O2SAT 93
[2023-06-27] MEDS: ALPRAZolam 0.25 MG TAB PO PRN ×2 (02:25→20:10)
[2023-06-27] MEDS: PIPERACILLIN/TAZOBACTAM SOD 3.375 GM in D5W MINI-BAG PLUS 50 ML IV SCH ×2 (02:25→08:11)
[2023-06-27 04:10] VITALS: BP 126/59; TEMP 97.8; O2SAT 97
[2023-06-27 05:42] LABS: BASO % 0.2 % (0.0-1.0); EOS # 0.5 10^3/uL (0.0-0.5); EOS % 3.9 % (0.0-3.0); HEMATOCRIT 32.4 % (42.0-52.0); HEMOGLOBIN 10.5 g/dl (13.5-17.5); LYMPH # 1.6 10^3/uL (1.5-5.0); LYMPH % 12.9 % (24.0-44.0); MEAN CORPUSCULAR HEMOGLOBIN 29.6 pg (27.0-33.0); MEAN CORPUSCULAR HGB CONC 32.4 g/dl (32.0-36.5); MEAN CORPUSCULAR VOLUME 91.3 fl (80.0-96.0); MONO # 0.7 10^3/uL (0.0-0.8); NEUTROPHILS # 9.3 10^3/uL (1.5-8.5); NEUTROPHILS % 75.9 % (36.0-66.0); PLATELET COUNT, AUTOMATED 222 10^3/uL (150-450); RED BLOOD COUNT 3.55 10^6/uL (4.30-6.10); WHITE BLOOD COUNT 12.3 10^3/uL (4.0-10.0)
[2023-06-27 05:51] LABS: ALBUMIN 2.3 G/DL (3.2-5.2); ALKALINE PHOSPHATASE 82 U/L (46-116); ALT/SGPT 88 U/L (7.0-40); AST/SGOT 67 U/L (<34); BILIRUBIN,TOTAL 1.1 MG/DL (0.3-1.2); BLOOD UREA NITROGEN 36 MG/DL (9-23); CALCIUM LEVEL 8.6 MG/DL (8.3-10.6); CARBON DIOXIDE LEVEL 32 MMOL/L (20-31); CHLORIDE LEVEL 101 MMOL/L (98-107); CREATININE FOR GFR 1.06 MG/DL (0.70-1.30); GLOMERULAR FILTRATION RATE > 60.0 (>35); GLUCOSE, FASTING 223 MG/DL (74-106); MAGNESIUM LEVEL 1.6 MG/DL (1.8-2.4); POTASSIUM SERUM 3.9 MMOL/L (3.5-5.1); SODIUM LEVEL 140 MMOL/L (136-145); TOTAL PROTEIN 5.8 G/DL (5.7-8.2)
[2023-06-27 08:00] VITALS: BP 113/61; TEMP 98.1; O2SAT 97
[2023-06-27] MEDS ORDERED: MAG SULF 1GM/100ML (MAG RUN) 1 GM in IV 1 EA IV ONE ×2 (08:00→10:50)
[2023-06-27] MEDS: MAGNESIUM OXIDE 400MG TAB (MAG-OX) PO SCH ×2 (08:01→20:09)
[2023-06-27] MEDS: ASPIRIN 81MG ENTERIC TABLET PO SCH (08:02)
[2023-06-27] MEDS: MOM 30ML SUSPENSION UDC PO PRN (08:02)
[2023-06-27] MEDS: APIXABAN 5 MG TAB (ELIQUIS) PO SCH ×2 (08:02→20:09)
[2023-06-27] MEDS: INSULIN LISPRO (NovoLOG) PER UNIT SC SCH ×4 (08:03→20:10)
[2023-06-27] MEDS: LEVEMIR (INSULIN DETEMIR) 1 UNITS/0.01ML SC SCH (08:10)
[2023-06-27] MEDS: SODIUM CHLORIDE NASAL 0.65% SPRAY BTL (OCEAN) SCH ×2 (08:10→20:11)
[2023-06-27] MEDS: PANTOPRAZOLE 40MG TAB (PROTONIX) PO SCH (08:10)
[2023-06-27] MEDS: CIPRODEX OTIC SUSP 7.5ML AS SCH ×2 (08:10→20:11)
[2023-06-27] MEDS ORDERED: METOPROLOL TART 25 MG TABLET PO ONE (10:45)
[2023-06-27 11:36] VITALS: BP 135/63; TEMP 97.9; O2SAT 93
[2023-06-27] MEDS: METOPROLOL TART 50 MG TAB PO SCH ×3 (11:38→23:51)
[2023-06-27] MEDS ORDERED: METOPROLOL TART 50 MG TAB PO SCH (12:00)
[2023-06-27 15:39] VITALS: BP 130/55; TEMP 97.7; O2SAT 93
[2023-06-27] MEDS: EZETIMIBE 10MG TABLET (ZETIA) PO SCH (20:09)
[2023-06-27] MEDS: ATORVASTATIN 20 MG TAB PO SCH (20:10)
[2023-06-27 23:47] VITALS: BP 144/80; TEMP 97.3; O2SAT 97
[2023-06-28 04:16] VITALS: BP 148/66; TEMP 98.1; O2SAT 94
[2023-06-28 05:15] LABS: BASO % 0.2 % (0.0-1.0); EOS # 0.5 10^3/uL (0.0-0.5); EOS % 4.3 % (0.0-3.0); HEMATOCRIT 32.8 % (42.0-52.0); HEMOGLOBIN 10.3 g/dl (13.5-17.5); LYMPH % 16.1 % (24.0-44.0); MEAN CORPUSCULAR HEMOGLOBIN 28.5 pg (27.0-33.0); MEAN CORPUSCULAR HGB CONC 31.4 g/dl (32.0-36.5); MEAN CORPUSCULAR VOLUME 90.9 fl (80.0-96.0); MONO # 0.8 10^3/uL (0.0-0.8); MONO % 6.3 % (2.0-8.0); NEUTROPHILS # 8.8 10^3/uL (1.5-8.5); NEUTROPHILS % 71.3 % (36.0-66.0); PLATELET COUNT, AUTOMATED 247 10^3/uL (150-450); RED BLOOD COUNT 3.61 10^6/uL (4.30-6.10); WHITE BLOOD COUNT 12.4 10^3/uL (4.0-10.0)
[2023-06-28 05:24] VITALS: BP 148/67
[2023-06-28] MEDS: METOPROLOL TART 50 MG TAB PO SCH (05:24)
[2023-06-28 05:37] LABS: ALBUMIN 2.3 G/DL (3.2-5.2); ALKALINE PHOSPHATASE 79 U/L (46-116); ALT/SGPT 79 U/L (7.0-40); AST/SGOT 50 U/L (<34); BLOOD UREA NITROGEN 31 MG/DL (9-23); CALCIUM LEVEL 8.9 MG/DL (8.3-10.6); CARBON DIOXIDE LEVEL 32 MMOL/L (20-31); CHLORIDE LEVEL 101 MMOL/L (98-107); CREATININE FOR GFR 0.99 MG/DL (0.70-1.30); GLOMERULAR FILTRATION RATE > 60.0 (>35); GLUCOSE, FASTING 166 MG/DL (74-106); MAGNESIUM LEVEL 1.8 MG/DL (1.8-2.4); POTASSIUM SERUM 3.9 MMOL/L (3.5-5.1); SODIUM LEVEL 140 MMOL/L (136-145); TOTAL PROTEIN 5.7 G/DL (5.7-8.2)
[2023-06-28] MEDS: INSULIN LISPRO (NovoLOG) PER UNIT SC SCH ×2 (07:40→12:31)
[2023-06-28 08:00] VITALS: BP 128/74; TEMP 97.8; O2SAT 92
[2023-06-28] MEDS ORDERED: LEVEMIR (INSULIN DETEMIR) 1 UNITS/0.01ML SC SCH (09:00)
[2023-06-28] MEDS: PANTOPRAZOLE 40MG TAB (PROTONIX) PO SCH (09:47)
[2023-06-28] MEDS: MAGNESIUM OXIDE 400MG TAB (MAG-OX) PO SCH (09:47)
[2023-06-28] MEDS: ASPIRIN 81MG ENTERIC TABLET PO SCH (09:47)
[2023-06-28] MEDS: APIXABAN 5 MG TAB (ELIQUIS) PO SCH (09:47)
[2023-06-28] MEDS: SODIUM CHLORIDE NASAL 0.65% SPRAY BTL (OCEAN) SCH (09:51)
[2023-06-28] MEDS ORDERED: METO100T5 PO ×2 (10:09→11:00)
== END 2023-06-28 13:14 | disposition home health service (06) | DRG 853 ==
LOC: M ED 21:42 → EDBD 21:42 → M ED INP 06-21 04:08 → M PCU 06-21 05:17 → M ICU 06-23 11:00 → M PCU 06-25 17:35
PROVIDERS: ADMIT Family Medicine; ATTEND Internal Medicine
PROC: 8E0W4CZ Robotic Assisted Procedure of Trunk Region, Percutaneous Endoscopic Approach (ICD-10-PCS; 2023-06-22)
PROC: 0FT44ZZ Resection of Gallbladder, Percutaneous Endoscopic Approach (ICD-10-PCS; principal; 2023-06-22 15:00)
PROC: B246ZZZ Ultrasonography of Right and Left Heart (ICD-10-PCS; 2023-06-23)
PROC: 02HV33Z Insertion of Infusion Device into Superior Vena Cava, Percutaneous Approach (ICD-10-PCS; 2023-06-23)
DX: A41.9 Sepsis, unspecified organism (principal); J96.01 Acute respiratory failure with hypoxia; I50.33 Acute on chronic diastolic (congestive) heart failure; I21.A1 Myocardial infarction type 2; R65.21 Severe sepsis with septic shock; K65.8 Other peritonitis; K80.00 Calculus of gallbladder with acute cholecystitis without obstruction; N17.9 Acute kidney failure, unspecified; K82.A2 Perforation of gallbladder in cholecystitis; I13.0 Hypertensive heart and chronic kidney disease with heart failure and stage 1 through stage 4 chronic kidney disease, or unspecified chronic kidney disease; E87.1 Hypo-osmolality and hyponatremia; I48.20 Chronic atrial fibrillation, unspecified; K56.7 Ileus, unspecified; I48.92 Unspecified atrial flutter; I24.89 Other forms of acute ischemic heart disease; I45.2 Bifascicular block; I47.10 Supraventricular tachycardia, unspecified; I25.10 Atherosclerotic heart disease of native coronary artery without angina pectoris; D64.9 Anemia, unspecified; E87.5 Hyperkalemia; E78.5 Hyperlipidemia, unspecified; R74.01 Elevation of levels of liver transaminase levels; E11.22 Type 2 diabetes mellitus with diabetic chronic kidney disease; N18.9 Chronic kidney disease, unspecified; F41.9 Anxiety disorder, unspecified; I27.20 Pulmonary hypertension, unspecified; E83.42 Hypomagnesemia; I95.9 Hypotension, unspecified; R07.89 Other chest pain; G47.00 Insomnia, unspecified; E66.9 Obesity, unspecified; K21.9 Gastro-esophageal reflux disease without esophagitis; Z95.2 Presence of prosthetic heart valve; Z90.49 Acquired absence of other specified parts of digestive tract; Z79.82 Long term (current) use of aspirin; Z79.4 Long term (current) use of insulin; Z79.899 Other long term (current) drug therapy; Z79.2 Long term (current) use of antibiotics; Z88.3 Allergy status to other anti-infective agents; Z88.8 Allergy status to other drugs, medicaments and biological substances; Z20.822 Contact with and (suspected) exposure to COVID-19; Z95.5 Presence of coronary angioplasty implant and graft

== ENCOUNTER → 2023-07-17 | Outpatient (CLI) | payer MEDICARE, OTHER ==
[~2023-07-17] MED LIST changes: +CIPR7.5D2 AS; +METO100T5 PO; +METO1TAB87 PO
[2023-07-17 19:58] LABS: HEMATOCRIT 35.5 % (42.0-52.0); HEMOGLOBIN 10.5 g/dl (13.5-17.5); MEAN CORPUSCULAR HEMOGLOBIN 29.1 pg (27.0-33.0); MEAN CORPUSCULAR HGB CONC 29.6 g/dl (32.0-36.5); MEAN CORPUSCULAR VOLUME 98.3 fl (80.0-96.0); PLATELET COUNT, AUTOMATED 210 10^3/uL (150-450); RED BLOOD COUNT 3.61 10^6/uL (4.30-6.10); WHITE BLOOD COUNT 6.5 10^3/uL (4.0-10.0)
[2023-07-17 20:20] LABS: BLOOD UREA NITROGEN 17 MG/DL (9-23); CALCIUM LEVEL 8.9 MG/DL (8.3-10.6); CARBON DIOXIDE LEVEL 33 MMOL/L (20-31); CHLORIDE LEVEL 103 MMOL/L (98-107); CREATININE FOR GFR 1.03 MG/DL (0.70-1.30); GLOMERULAR FILTRATION RATE > 60.0 (>35); GLUCOSE, FASTING 131 MG/DL (74-106); POTASSIUM SERUM 4.5 MMOL/L (3.5-5.1); SODIUM LEVEL 143 MMOL/L (136-145)
== END ==
LOC: M WUC 10:37
PROVIDERS: ATTEND Nurse Practitioner Family
DX: R06.09 Other forms of dyspnea (principal); I48.0 Paroxysmal atrial fibrillation

== ENCOUNTER → 2023-08-31 | Outpatient (CLI) | payer MEDICARE, OTHER | LOC: M RAD 10:42 | PROVIDERS: ATTEND Physician Assistant | DX: I65.23 Occlusion and stenosis of bilateral carotid arteries (principal) ==

== ENCOUNTER → 2023-12-06 | Outpatient (CLI) | payer MEDICARE, OTHER ==
[~2023-12-06] MED LIST changes: -ASPI-161 PO; +ASPI-615 PO
[2023-12-06 12:29] LABS: BLOOD UREA NITROGEN 31 MG/DL (9-23); CREATININE FOR GFR 1.19 MG/DL (0.70-1.30); GLOMERULAR FILTRATION RATE > 60.0 (>35)
== END ==
LOC: M LAB 11:34
PROVIDERS: ATTEND Physician Assistant
DX: R10.11 Right upper quadrant pain (principal); R10.31 Right lower quadrant pain

== ENCOUNTER → 2023-12-13 | Outpatient (CLI) | payer MEDICARE, OTHER ==
[~2023-12-13] MED LIST changes: +READI-CAT 2 As Ordered ONE
== END ==
LOC: M RAD 10:50
PROVIDERS: ATTEND Physician Assistant
DX: R10.11 Right upper quadrant pain (principal); R10.31 Right lower quadrant pain; J98.11 Atelectasis; N28.1 Cyst of kidney, acquired; I70.0 Atherosclerosis of aorta; K40.90 Unilateral inguinal hernia, without obstruction or gangrene, not specified as recurrent; K42.9 Umbilical hernia without obstruction or gangrene; I70.203 Unspecified atherosclerosis of native arteries of extremities, bilateral legs; M16.0 Bilateral primary osteoarthritis of hip

== ENCOUNTER → 2024-07-15 | Outpatient (REF) | payer MEDICARE, OTHER ==
[~2024-07-15] MED LIST changes: -READI-CAT 2 As Ordered ONE
== END ==
LOC: M LAB REF 11:29
PROVIDERS: ATTEND Internal Medicine
DX: I25.10 Atherosclerotic heart disease of native coronary artery without angina pectoris (principal); I50.32 Chronic diastolic (congestive) heart failure

== ENCOUNTER → 2024-08-25 | Outpatient (REF) | payer MEDICARE, OTHER | LOC: M LAB REF 16:19 | PROVIDERS: ATTEND Family Medicine | DX: D64.9 Anemia, unspecified (principal) ==

== ENCOUNTER → 2025-05-19 | Outpatient (REF) | payer MEDICARE, OTHER ==
[~2025-05-19] MED LIST changes: +AMOX875T2 PO; +DOCU100C16 PO; +FURO40TA2 PO; +MAGN71.5 PO; +SLOW1TAB3 PO; -SLOWTAB2 PO; +THERTAB52 PO
== END ==
LOC: M LAB REF 14:26
PROVIDERS: ATTEND Family Medicine
DX: I48.0 Paroxysmal atrial fibrillation (principal); D64.9 Anemia, unspecified

== ENCOUNTER → 2025-07-27 | Outpatient (CLI) | payer MEDICARE, OTHER | LOC: M RAD 14:10 | PROVIDERS: ATTEND Family Medicine | DX: M79.671 Pain in right foot (principal); R93.6 Abnormal findings on diagnostic imaging of limbs ==